=== PATIENT | male | born 1935 | race Caucasian/White ===

== ENCOUNTER 2016-09-25 11:49 | Inpatient (IN) | payer BC ==
[2016-09-25] MEDS ORDERED: ALBUTEROL SO4 0.083% IH SOL 2.5 MG/3 ML VIAL.NEB. NEB ONE (12:36)
[2016-09-25] MEDS ORDERED: IPRATROPIUM BR 0.02% 0.5 MG/2.5 ML VIAL.NEB. NEB ONE (12:36)
--- NOTE | 2016-09-25 12:36 | PDOC ---
History of Present Illness - General History Source: Patient, Family, Old Records Exam Limitations: No Limitations <NasimNicole - Last Filed: 09/25/16 14:37> - General History Source: Patient, Family Exam Limitations: No Limitations - History of Present Illness Initial Comments: 09/25/16 12:45 The patient is a 81 year old male, with a significant past medical history of HTN, HLD, GERD and asthma (uses inhaler as needed), who presents to the emergency department with cough for week and recent shortness of breath with wheezing. The notes that the patient's cough is productive of a white phlegm. The patient was admitted to the hospital 2 months ago with water in his lungs, stayed in the hospital for a week and was transferred to [facility] for a cardiac catheterization, which did not require stenting. The patient denies chest pain, headache and dizziness. Denies fever, chills, nausea, vomit, diarrhea and constipation. Denies dysuria, frequency, urgency and hematuria. Allergies: Amoxicillin. Doxycycline. Levofloxacin. Metronidazole. Past Surgical History: Laminectomy. Total hip replacement. Social History: Former smoker. He denies ETOH and recreational drug use. Primary Care Physician: Dr. David Kim [phone] Theater Company Producer: Dr. David Samano <Tunde Joseph - Last Filed: 09/25/16 14:41> - General Chief Complaint: Shortness of Breath Stated Complaint: SOB Time Seen by Provider: 09/25/16 12:19 Past History - Past Medical History GI Disorders: Yes (gerd) HTN: Yes Hypercholesterolemia: Yes - Surgical History Orthopedic Surgery: Yes (laminectomy; total hip replacement) - Immunization History Immunization Up to Date: Yes - Psycho/Social/Smoking Cessation Hx Anxiety: No Suicidal Ideation: No Smoking Status: Yes Smoking History: Never smoked Have you smoked in the past 12 months: No Number of Cigarettes Smoked Daily: 0 If you are a former smoker, when did you quit?: 50 years ago Hx Alcohol Use: No Drug/Substance Use Hx: No Substance Use Type: None Hx Substance Use Treatment: No <Nicole Rouse - Last Filed: 09/25/16 14:37> <Tunde Joseph - Last Filed: 09/25/16 14:41> - Past Medical History Allergies/Adverse Reactions: Allergies Allergy/AdvReac Type Severity Reaction Status Date / Time amoxicillin Allergy Verified 09/25/16 12:01 doxycycline Allergy Verified 09/25/16 12:01 levofloxacin Allergy Verified 09/25/16 12:01 metronidazole Allergy Verified 09/25/16 12:01 Home Medications: Ambulatory Orders Aspirin [ASA -] 81 mg PO DAILY 09/25/16 Atorvastatin Ca [Lipitor] 40 mg PO HS 09/25/16 Budesonide/Formeterol Fumarate [SYMBICORT 160/4.5mcg -] 1 inh IH PRN PRN Carbidopa/Levodopa 25/100 [Sinemet 25/100 -] 1 each PO TID 09/25/16 Cholecalciferol (Vitamin D3) [Vitamin D3] 400 unit PO DAILY 09/25/16 Diltiazem [Cardizem -] 120 mg PO BID 09/25/16 Furosemide [Lasix] 40 mg PO DAILY 09/25/16 Gabapentin 300 mg PO HS 09/25/16 Hydralazine HCl [Apresoline -] 25 mg PO TID 09/25/16 Losartan Potassium 100 mg PO DAILY 09/25/16 Metoprolol Tartrate 25 mg PO DAILY 09/25/16 Pantoprazole Sodium [Protonix] 40 mg PO DAILY 09/25/16 Potassium Chloride 10 meq PO DAILY 09/25/16 Thiamine HCl [Vitamin B1] 100 mg PO DAILY 09/25/16 Review of Systems - Review of Systems Able to Perform ROS?: Yes Comments:: 09/25/16 12:46 GENERAL/CONSTITUTIONAL: No fever or chills. No weakness. HEAD, EYES, EARS, NOSE AND THROAT: No change in vision. No ear pain or discharge. No sore throat. CARDIOVASCULAR: +Shortness of breath. No chest pain RESPIRATORY: +Cough and wheezing. No hemoptysis. GASTROINTESTINAL: No nausea, vomiting, diarrhea or constipation. GENITOURINARY: No dysuria, frequency, or change in urination. MUSCULOSKELETAL: No joint or muscle swelling or pain. No neck or back pain. SKIN: No rash NEUROLOGIC: No headache, vertigo, loss of consciousness, or change in strength/ sensation. ENDOCRINE: No increased thirst. No abnormal weight change HEMATOLOGIC/LYMPHATIC: No anemia, easy bleeding, or history of blood clots. ALLERGIC/IMMUNOLOGIC: No hives or skin allergy. <KaiserharshalTunde Kapoor - Last Filed: 09/25/16 14:41> *Physical Exam - Vital Signs Last Vital Signs Temp Pulse Resp BP Pulse Ox 98.3 F 95 H 20 149/79 96 09/25/16 11:58 09/25/16 11:58 09/25/16 11:58 09/25/16 11:58 09/25/16 11:58 <Nicole Rouse - Last Filed: 09/25/16 14:37> - Vital Signs Last Vital Signs Temp Pulse Resp BP Pulse Ox 98.3 F 95 H 20 149/79 96 09/25/16 11:58 09/25/16 11:58 09/25/16 11:58 09/25/16 11:58 09/25/16 11:58 - Physical Exam Comments: 09/25/16 12:46 GENERAL: Awake, alert, and fully oriented, in no acute distress HEAD: No signs of trauma, normocephalic, atraumatic EYES: PERRLA, EOMI, sclera anicteric, conjunctiva clear ENT: Auricles normal inspection, hearing grossly normal, nares patent, oropharynx clear without exudates. Moist mucosa NECK: Normal ROM, supple, no lymphadenopathy, JVD, or masses LUNGS: +Fair air entry with crackles at the bilateral bases and scant expiratory wheezing at upper lung field. No strider. HEART: Regular rate and rhythm, normal S1 and S2, no murmurs, rubs or gallops, peripheral pulses normal and equal bilaterally. ABDOMEN: Distended but soft, nontender, normoactive bowel sounds. No guarding, no rebound. No masses EXTREMITIES: 2+ bipedal edema. Normal inspection, Normal range of motion. No clubbing or cyanosis. NEUROLOGICAL: Cranial nerves II through XII grossly intact. Normal speech, normal gait, no focal sensorimotor deficits SKIN: Warm, Dry, normal turgor, no rashes or lesions noted. <KaiserharshalTunde - Last Filed: 09/25/16 14:41> ED Treatment Course - LABORATORY CBC & Chemistry Diagram: 09/25/16 12:36 09/25/16 12:36 <Nicole Rouse - Last Filed: 09/25/16 14:37> - LABORATORY CBC & Chemistry Diagram: 09/25/16 12:36 09/25/16 12:36 - RADIOLOGY Radiograph Interpretation: 09/25/16 13:32 Chest X-Ray Reviewed by: Dr. Martínez Nichole Impression: Apical lordotic projection. No acute pathology. No left upper lobe calcification. Vertical calcification left neck. <Tunde Joseph - Last Filed: 09/25/16 14:41> Medical Decision Making - Medical Decision Making 09/25/16 12:40 81-year-old male with history of osteoarthritis, hypertension, CHF, COPD/asthma , Parkinson's disease, chronic lower back pain status post laminectomy who presents the emergency department with one week history of shortness of breath and cough, chills at home. Differential diagnosis includes but is not limited to : Pneumonia, influenza, bronchitis, asthma/COPD exacerbation, CHF exacerbation, anemia, electrolyte abnormality, sepsis, toxic/metabolic derangement. Plan: 1 EKG 2. Chest x-ray 3. Labs 4. DuoNeb treatments 5. Influenza PCR 6. Observe and reevaluate 09/25/16 14:07 Addendum: Chest x-ray is negative however the patient has fever to 101.4 rectally and an elevated white blood cell count and is also influenza a positive. The patient has been jacob cultured blood and urine and has been given Tamiflu 75 mg by mouth 1. Given his age and comorbidities illnesses Will admit to the hospital. <Nicole Rouse - Last Filed: 09/25/16 14:37> - Medical Decision Making 09/25/16 14:41 Dr. David Alicia was called regarding the patient at 2:07pm. Dr. García was consulted regarding the patient at 2:35pm [phone] <Tunde Joseph - Last Filed: 09/25/16 14:41> *DC/Admit/Observation/Transfer - Discharge Dispostion Admit: Yes - Attestations Physician Attestion: 09/25/16 12:42 I, Dr. Nicole Rouse, attest that the scribes documentation that appears above has been prepared under my direction and personally reviewed by me in its entirety. I confirmed that the note above accurately reflects all work, treatment, procedures, and medical decision-making performed by me. <Nicole Rouse - Last Filed: 09/25/16 14:37> - Attestations Scribe Attestion: 09/25/16 12:46 Documentation prepared by Tunde Joseph, acting as medical research assistant for Nicole Rouse MD. <Tunde Joseph - Last Filed: 09/25/16 14:41> Diagnosis at time of Disposition: Shortness of breath, Influenza A - Discharge Dispostion Condition at time of disposition: Stable - Referrals Referrals: David Alicia MD [Primary Care Provider] -
[2016-09-25] MEDS ORDERED: ALBUTEROL SO4 2.5/IPRATROPIUM 0.5 INH SOL 3 ML VIAL.NEB. NEB ONE (12:56)
[2016-09-25] MEDS ORDERED: ACETAMINOPHEN 500 MG TABLET (FP) PO ONE (12:58)
[2016-09-25 13:03] LABS: BASOPHIL 0.4 % (0-2.0); MCH 30.2 pg (25.7-33.7); MCHC 33.9 g/dl (32.0-35.9); MEAN CELL VOLUME 89.1 fl (80-96); MEAN PLT VOLUME 7.3 fl (7.5-11.1); NEUTROPHILS 83.8 % (42.8-82.8); PLATELET COUNT 135 K/MM3 (134-434); RDW 13.7 % (11.9-15.9); WHITE BLOOD COUNT 11.5 K/mm3 (4.0-10.0)
[2016-09-25] MEDS ORDERED: ACETAMINOPHEN 325 MG TABLET (FP) ONE (13:31)
[2016-09-25 13:34] LABS: ANION GAP 10 (8-16); BILIRUBIN,TOTAL 0.8 mg/dL (0.2-1.0); CALCIUM 8.3 mg/dL (8.5-10.1); CO2 28 mmol/L (21-32); CREATININE 1.1 mg/dL (0.7-1.3); GLUCOSE,RANDOM 132 mg/dL (74-106); SGOT/AST 23 U/L (15-37); SGPT/ALT 14 U/L (12-78); TOT PROT 5.7 g/dl (6.4-8.2)
[2016-09-25] MEDS ORDERED: CEFTRIAXONE 1 GM in DEXTROSE 5%-WATER - 50 ML IVPB ONE (13:35)
[2016-09-25] MEDS ORDERED: AZITHROMYCIN IVPB 500 MG in DEXTROSE 5%-WATER - 250 ML IVPB ONE (13:35)
[2016-09-25 13:37] LABS: ALK PHOS 81 U/L (45-117); TROPONIN I 0.06 ng/ml (0.00-0.05)
[2016-09-25] MEDS ORDERED: CEFTRIAXONE 50 ML ONE ×2 (13:44)
[2016-09-25] MEDS ORDERED: AZITHROMYCIN IVPB 250 ML IVPB ONE (13:44)
[2016-09-25 13:51] LABS: URINE APPEARANCE CLEAR; URINE BILIRUBIN NEGATIVE (NEGATIVE); URINE BLOOD NEGATIVE (NEGATIVE); URINE COLOR YELLOW; URINE GLUCOSE (UA) NEGATIVE (NEGATIVE); URINE KETONE TRACE (NEGATIVE); URINE LEUK ESTERASE NEGATIVE (NEGATIVE); URINE NITRITE NEGATIVE (NEGATIVE); URINE PROTEIN NEGATIVE (NEGATIVE); URINE UROBILINOGEN NEGATIVE E.U./dl (0.2-1.0)
[2016-09-25] MEDS ORDERED: OSELTAMIVIR PHOSPHATE 75 MG CAPSULE PO ONE (13:56)
[2016-09-25] MEDS ORDERED: OSELTAMIVIR PHOSPHATE 75 MG CAPSULE ONE (14:02)
--- NOTE | 2016-09-25 16:07 | PN ---
Progress Note (short form) - Note Progress Note: ID consult dictated history from son at bedside 81 year old man started coughing Tuesday- no nasal spray that he stopped, cough persisted, this am fever and chills, they called PMD who advised tylenol and ED evaluation dry cough no nausea or vomiting febrile in ED with positive influenza screen for influenza A received rocephin/zithromax/tamiflu cxray is clear imp/reccd influenza A droplet isolation tamiflu unable to reach Dr Alicia did not get flu shot- advised fast track eval for influenza and prophylaxis with tamiflu if screen is negative Problem List - Problems (1) Influenza A Code(s): J10.1 - FLU DUE TO OTH IDENT INFLUENZA VIRUS W OTH RESP MANIFEST
[2016-09-25 17:40] VITALS: BMI 29.6
[2016-09-25] MEDS: ALBUTEROL SO4 0.083% IH SOL 2.5 MG/3 ML VIAL.NEB. NEB SCH (20:40)
[2016-09-25] MEDS ORDERED: methylPREDNISolone NA SUCC 40 MG/1 ML VIAL IVPB ONE (21:44)
[2016-09-25] MEDS ORDERED: ACETAMINOPHEN 325 MG TABLET (FP) PO PRN (22:01)
[2016-09-25] MEDS: hydrALAZINE HCL 25 MG TABLET (FP) PO SCH (22:43)
[2016-09-25] MEDS: predniSONE 5 MG TABLET (UD) PO SCH (22:43)
[2016-09-25] MEDS: GABAPENTIN 300 MG CAPSULE (FP) PO SCH (22:44)
[2016-09-25] MEDS: ATORVASTATIN CA 40 MG TABLET (FP) PO SCH (22:44)
[2016-09-25] MEDS: OSELTAMIVIR PHOSPHATE 75 MG CAPSULE PO SCH (22:45)
[2016-09-25] MEDS: CARBIDOPA/LEVODOPA 25/100 TABLET (FP) PO SCH (22:45)
[2016-09-25] MEDS: METOPROLOL SUCCINATE 25 MG TAB.SR.24H (FP) PO SCH (22:46)
[2016-09-25] MEDS: BUDESONIDE/FORMETEROL FUMARATE 80/4.5 mcg INHALER IH SCH (22:46)
--- NOTE | 2016-09-25 23:51 | CONS ---
DATE OF CONSULTATION: 09/25/2016 REQUESTED BY: David Alicia MD HISTORY OF PRESENT ILLNESS: This is a 81-year-old man with a past medical history of hypertension, hyperlipidemia, GERD and asthma. He was seen by ENT earlier this week, on Tuesday or Tuesday. He was prescribed a nasal spray for dryness in his nose. Once he started using it, he started coughing. The family noticed he had a dry cough. This morning, he had fever and was very weak. They called the PMD, Dr. Alicia , who recommended that they give him some Tylenol and bring him to the ER, which they did. On arrival to the ER, he was afebrile. He subsequently had fever in the ER and he had influenza screen done that was positive for influenza A. He received Rocephin, Zithromax and Tamiflu and I am asked to see him. He is resting comfortably. There is no history of any nausea, vomiting, diarrhea, or dysuria. PAST MEDICAL HISTORY: Obtained from his son. Notable for coronary artery disease, hypertension, hyperlipidemia, asthma, GERD, hiatal hernia, depression, chronic low back pain, osteoarthritis, polymyalgia rheumatica. PAST SURGICAL HISTORY: He has a history of joint replacement, laminectomy. He has a history of a recent cardiac catheterization that did not require any stent placement. FAMILY HISTORY: Noncontributory. SOCIAL HISTORY: He lives at home with his . He is a former smoker. There is no history of any substance use. ALLERGIES: AMOXICILLIN, DOXYCYCLINE, LEVOFLOXACIN, AND METRONIDAZOLE MEDICATIONS AT HOME: Include aspirin, Lipitor, Symbicort, Sinemet, vitamin D, Cardizem, Lasix, gabapentin, and presently, Losartan, metoprolol, Protonix, potassium and thiamin. REVIEW OF SYSTEMS: Notable for dry cough and fever. PHYSICAL EXAMINATION: General: He is awake and alert resting comfortably. Vital Signs: Temperature 101.7, pulse 90, blood pressure 149/79, respiratory rate 20, saturating 97% on 2 L. HEENT: Normocephalic. His eyes are anicteric. Neck: Supple. Lungs: Diminished breath sounds at the based. Heart: Regular rate and rhythm. Abdomen: Soft, nontender. Extremities: Without edema. LABORATORY DATA: White count 11.5, hemoglobin 12.4, platelets of 135. BUN and creatinine are 16 and 1.1. His lactic acid is 2. Liver function tests are normal. Urinalysis is negative. Blood and urine cultures were sent. Influenza screen is positive for influenza A and chest x-ray reveals no acute pathology. IN SUMMARY: This is a 81-year-old man with a history of hypertension, hyperlipidemia, laminectomy and total hip replacement, multiple drug allergies who has acute influenza A. I would suggest that we place him in droplet isolation and treat him with Tamiflu. He received Rocephin and Zithromax and multiple blood cultures have been ordered. Further recommendations to follow based on his clinical course. I spoke to the , who lives at home with him. She has not had an influenza vaccine this year. I recommended to the son that we have her evaluated in Fast Track and for her to be offered Tamiflu prophylaxis. Further recommendations to follow based on the clinical course. JENNA BOWLES M.D. [id number] MTDD
[2016-09-26] MEDS: ALBUTEROL SO4 0.083% IH SOL 2.5 MG/3 ML VIAL.NEB. NEB SCH ×6 (00:20→23:32)
[2016-09-26] MEDS: CARBIDOPA/LEVODOPA 25/100 TABLET (FP) PO SCH ×3 (06:23→21:53)
[2016-09-26] MEDS: FUROSEMIDE 40 MG TABLET (FP) PO SCH ×2 (06:25→14:26)
[2016-09-26] MEDS: hydrALAZINE HCL 25 MG TABLET (FP) PO SCH ×3 (06:25→21:53)
[2016-09-26] MEDS ORDERED: PT OWN MED DRAWER 7, Y5N ONE ×3 (09:21→21:47)
--- NOTE | 2016-09-26 09:35 | EKG ---
Test Reason : Blood Pressure : / mmHG Vent. Rate : 090 BPM Atrial Rate : 090 BPM P-R Int : 224 ms QRS Dur : 110 ms QT Int : 392 ms P-R-T Axes : 018 -48 078 degrees QTc Int : 479 ms POOR DATA QUALITY, INTERPRETATION MAY BE ADVERSELY AFFECTED SINUS RHYTHM WITH 1ST DEGREE A-V BLOCK INCOMPLETE RIGHT BUNDLE BRANCH BLOCK LEFT ANTERIOR FASCICULAR BLOCK LEFT VENTRICULAR HYPERTROPHY WITH REPOLARIZATION ABNORMALITY CANNOT RULE OUT SEPTAL INFARCT , AGE UNDETERMINED ABNORMAL ECG Confirmed by DRE ROBERTS MD ([id number]) on 09/26/2016 9:34:56 AM Referred By: Confirmed By:DRE ROBERTS MD
[2016-09-26] MEDS: ISOSORBIDE MONONITRATE 30 MG TAB.SR.24H (FP) PO SCH (09:46)
[2016-09-26] MEDS: predniSONE 5 MG TABLET (UD) PO SCH (09:46)
[2016-09-26] MEDS: POTASSIUM CHLORIDE TABS 10 MEQ TABLET.ER (FP) PO SCH (09:46)
[2016-09-26] MEDS: GABAPENTIN 300 MG CAPSULE (FP) PO SCH ×2 (09:47→21:52)
[2016-09-26] MEDS: OSELTAMIVIR PHOSPHATE 75 MG CAPSULE PO SCH ×2 (09:47→21:54)
[2016-09-26] MEDS: METOPROLOL SUCCINATE 25 MG TAB.SR.24H (FP) PO SCH (09:47)
[2016-09-26] MEDS: AZITHROMYCIN 250 MG TABLET (FP) PO SCH (09:47)
[2016-09-26] MEDS: BUDESONIDE/FORMETEROL FUMARATE 80/4.5 mcg INHALER IH SCH ×2 (09:50→21:54)
--- NOTE | 2016-09-26 14:34 | HP ---
Admitting History and Physical - Primary Care Physician PCP: David Alicia - Admission Chief Complaint: Fever. Severe SOB with wheezing History of Present Illness: Known case of CHF, hypertension and Polymialgia Rheumatica who developed cough day before admission and then devel;oped Fever, shaking chill ,wheezing and SOB. Came to ER and found to have Influenza and was started on Tamiflu and also give IV steroids and admitted . History Source: Patient, Family Member Limitations to Obtaining History: No Limitations - Past Medical History [employer]IN[employer] HER[employer]IST: Yes: Peripheral Neuropathy, Parkinson's Cardiovascular: Yes: CAD, CHF, HTN, Hyperlipdemia Pulmonary: Yes: Asthma Gastrointestinal: Yes: GERD, Hiatal Hernia Psych: Yes: Anxiety Musculoskeletal: Yes: Chronic low back pain, Osteoarthritis Rheumatology: Yes: Other (polymyalgia rheumatica) Dermatology: Yes: Other (port wine stain LLE). No: Basal Cell, Cellulitis, Eczema, Melanoma, Psoriasis, Squamous Cell - Past Surgical History Past Surgical History: Yes: Colonoscopy, Joint Replacement, Laminectomy, Upper Endoscopy - Smoking History Smoking history: Former smoker Have you smoked in the past 12 months: No Aproximately how many cigarettes per day: 0 If you are a former smoker, when did you quit?: 50 years ago - Alcohol/Substance Use Hx Alcohol Use: No History of Substance Use: reports: None - Social History ADL: Independent History of Recent Travel: No Home Medications - Allergies Allergies/Adverse Reactions: Allergies Allergy/AdvReac Type Severity Reaction Status Date / Time amoxicillin Allergy Verified 09/25/16 12:01 doxycycline Allergy Verified 09/25/16 12:01 levofloxacin Allergy Verified 09/25/16 12:01 metronidazole Allergy Verified 09/25/16 12:01 - Home Medications Home Medications: Ambulatory Orders Aspirin [ASA -] 81 mg PO DAILY 09/25/16 Atorvastatin Ca [Lipitor] 40 mg PO HS 09/25/16 Budesonide/Formeterol Fumarate [SYMBICORT 160/4.5mcg -] 1 inh IH PRN PRN Carbidopa/Levodopa 25/100 [Sinemet 25/100 -] 1 each PO TID 09/25/16 Cholecalciferol (Vitamin D3) [Vitamin D3] 400 unit PO DAILY 09/25/16 Diltiazem Cd [Cardizem Cd -] 120 mg PO BID 09/25/16 Furosemide [Lasix] 40 mg PO BIDLASIX 09/25/16 Gabapentin 300 mg PO HS 09/25/16 Hydralazine HCl [Apresoline -] 25 mg PO TID 09/25/16 Isosorbide Mononitrate [Imdur -] 30 mg PO DAILY 09/25/16 Metoprolol Tartrate 12.5 mg PO HS 09/25/16 Pantoprazole Sodium [Protonix] 40 mg PO DAILY 09/25/16 Potassium Chloride 10 meq PO DAILY 09/25/16 Prednisone [Deltasone -] 2.5 mg PO HS 09/25/16 Thiamine HCl [Vitamin B1] 100 mg PO DAILY 09/25/16 Review of Systems - Review of Systems Constitutional: reports: Chills, Lethargy Eyes: reports: No Symptoms HENT: reports: No Symptoms Neck: reports: No Symptoms Cardiovascular: reports: No Symptoms Respiratory: reports: Cough, Wheezing Gastrointestinal: reports: No Symptoms Genitourinary: reports: No Symptoms Musculoskeletal: reports: Back Pain, Joint Pain Integumentary: reports: No Symptoms Neurological: reports: Parasthesia Hematology/Lymphatic: reports: No Symptoms Psychiatric: reports: Anxiety Physical Examination Vital Signs: Vital Signs Temperature 98.6 F 09/26/16 10:00 Pulse Rate 72 09/26/16 10:00 Respiratory Rate 20 09/26/16 10:00 Blood Pressure 140/70 09/26/16 10:00 O2 Sat by Pulse Oximetry (%) 98 09/26/16 09:00 Constitutional: Yes: Well Nourished, No Distress, Calm Eyes: Yes: WNL HENT: Yes: WNL Neck: Yes: WNL, Supple Cardiovascular: Yes: Regular Rate and Rhythm, S1, S2 Respiratory: Yes: Cough, Wheezes Gastrointestinal: Yes: Normal Bowel Sounds, Soft Renal/: Yes: WNL Breast(s): Yes: WNL Musculoskeletal: Yes: Back Pain, Joint Stiffness, Muscle Weakness Extremities: Yes: WNL Edema: No Peripheral Pulses WNL: Yes Integumentary: Yes: WNL Neurological: Yes: Alert, Oriented, Cran Nerves II-XII Intact, Tremors ...Motor Strength: WNL Psychiatric: Yes: Alert, Oriented Problem List - Problems (1) Influenza A Assessment/Plan: After being treated with Tamiflu felt better Code(s): J10.1 - FLU DUE TO OTH IDENT INFLUENZA VIRUS W OTH RESP MANIFEST (2) Acute bronchitis Assessment/Plan: Was given a short course of IV Solu medrol with improvement of SOB. Today wheezin is much less Code(s): J20.9 - ACUTE BRONCHITIS, UNSPECIFIED Assessment/Plan Continue Tamiflu , Will give another dose of IV Steroids. Continue PO zithromax
[2016-09-26] MEDS ORDERED: methylPREDNISolone NA SUCC 40 MG/1 ML VIAL IVPB ONE (14:46)
[2016-09-26] MEDS: ATORVASTATIN CA 40 MG TABLET (FP) PO SCH (21:52)
[2016-09-27] MEDS ORDERED: PT OWN MED DRAWER 7, Y5N ONE ×2 (06:06→14:33)
[2016-09-27] MEDS: FUROSEMIDE 40 MG TABLET (FP) PO SCH ×2 (06:18→14:39)
[2016-09-27] MEDS: hydrALAZINE HCL 25 MG TABLET (FP) PO SCH ×2 (06:18→14:37)
[2016-09-27] MEDS: CARBIDOPA/LEVODOPA 25/100 TABLET (FP) PO SCH ×2 (06:19→14:37)
[2016-09-27] MEDS: ALBUTEROL SO4 0.083% IH SOL 2.5 MG/3 ML VIAL.NEB. NEB SCH ×3 (06:40→18:20)
[2016-09-27] MEDS: AZITHROMYCIN 250 MG TABLET (FP) PO SCH (11:17)
[2016-09-27] MEDS: POTASSIUM CHLORIDE TABS 10 MEQ TABLET.ER (FP) PO SCH (11:17)
[2016-09-27] MEDS: predniSONE 5 MG TABLET (UD) PO SCH (11:18)
[2016-09-27] MEDS: ISOSORBIDE MONONITRATE 30 MG TAB.SR.24H (FP) PO SCH (11:18)
[2016-09-27] MEDS: GABAPENTIN 300 MG CAPSULE (FP) PO SCH (11:18)
[2016-09-27] MEDS: METOPROLOL SUCCINATE 25 MG TAB.SR.24H (FP) PO SCH (11:18)
[2016-09-27] MEDS: BUDESONIDE/FORMETEROL FUMARATE 80/4.5 mcg INHALER IH SCH (11:19)
[2016-09-27] MEDS: OSELTAMIVIR PHOSPHATE 75 MG CAPSULE PO SCH (11:19)
--- NOTE | 2016-09-27 12:48 | CON.CARD ---
Consult Consult Specialty:: Cardiology - History of Present Illness History of Present Illness: The patient is a 81 year old male, with a significant past medical history of HTN, HLD, GERD and asthma (uses inhaler as needed), who presents to the emergency department with cough for week and recent shortness of breath with wheezing. The notes that the patient's cough is productive of a white phlegm. The patient was admitted to the hospital 2 months ago with water in his lungs, stayed in the hospital for a week and was transferred to [facility] for a cardiac catheterization, which did not require stenting. The patient denies chest pain, headache and dizziness. Denies fever, chills, nausea, vomit, diarrhea and constipation. Denies dysuria, frequency, urgency and hematuria. Allergies: Amoxicillin. Doxycycline. Levofloxacin. Metronidazole. Past Surgical History: Laminectomy. Total hip replacement. Social History: Former smoker. He denies ETOH and recreational drug use. Primary Care Physician: Dr. David Kim [phone] Medical Administrative: Dr. David Samano [facility] Coronary angiogram 08/11/2016 at [facility] by Dr. Purcell: proximal LAD <30% , mid 50-60%, distal <30% stenoses; distal LCx <30% stenosis; normal LVEF) lower back 2009 Rt hip implant 1999 depression HHD HTN (ECHO 08/11/[address] [facility]'s: normal LVEF; "LVH" with abnormal diastolic compliance. hyperlipidemia pLAD myocardial bridge 2009 [facility] Cardiac Cath. 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 No: Basal Cell, Cellulitis, Eczema, Melanoma, Psoriasis, Squamous Cell - Past Surgical History Past Surgical History: Yes: Colonoscopy, Joint Replacement, Laminectomy, Upper Endoscopy - Alcohol/Substance Use Hx Alcohol Use: No History of Substance Use: reports: None - Smoking History Smoking history: Former smoker Have you smoked in the past 12 months: No Aproximately how many cigarettes per day: 0 If you are a former smoker, when did you quit?: 50 years ago - Social History ADL: Independent History of Recent Travel: No Home Medications - Allergies Allergies/Adverse Reactions: Allergies Allergy/AdvReac Type Severity Reaction Status Date / Time amoxicillin Allergy Verified 09/25/16 12:01 doxycycline Allergy Verified 09/25/16 12:01 levofloxacin Allergy Verified 09/25/16 12:01 metronidazole Allergy Verified 09/25/16 12:01 - Home Medications Home Medications: Ambulatory Orders Aspirin [ASA -] 81 mg PO DAILY 09/25/16 Atorvastatin Ca [Lipitor] 40 mg PO HS 09/25/16 Budesonide/Formeterol Fumarate [SYMBICORT 160/4.5mcg -] 1 inh IH PRN PRN Carbidopa/Levodopa 25/100 [Sinemet 25/100 -] 1 each PO TID 09/25/16 Cholecalciferol (Vitamin D3) [Vitamin D3] 400 unit PO DAILY 09/25/16 Diltiazem Cd [Cardizem Cd -] 120 mg PO BID 09/25/16 Furosemide [Lasix] 40 mg PO BIDLASIX 09/25/16 Gabapentin 300 mg PO HS 09/25/16 Hydralazine HCl [Apresoline -] 25 mg PO TID 09/25/16 Isosorbide Mononitrate [Imdur -] 30 mg PO DAILY 09/25/16 Metoprolol Tartrate 12.5 mg PO HS 09/25/16 Pantoprazole Sodium [Protonix] 40 mg PO DAILY 09/25/16 Potassium Chloride 10 meq PO DAILY 09/25/16 Prednisone [Deltasone -] 2.5 mg PO HS 09/25/16 Thiamine HCl [Vitamin B1] 100 mg PO DAILY 09/25/16 Review of Systems - Review of Systems Constitutional: reports: No Symptoms Eyes: reports: No Symptoms HENT: reports: No Symptoms Neck: reports: No Symptoms Cardiovascular: reports: No Symptoms, Shortness of Breath Gastrointestinal: reports: No Symptoms Genitourinary: reports: No Symptoms Breasts: reports: No Symptoms Reported Musculoskeletal: reports: No Symptoms Integumentary: reports: No Symptoms Neurological: reports: No Symptoms Endocrine: reports: No Symptoms Hematology/Lymphatic: reports: No Symptoms Psychiatric: reports: No Symptoms Vital Signs: Vital Signs Temperature 98.3 F 09/27/16 06:32 Pulse Rate 66 09/27/16 06:32 Respiratory Rate 20 09/27/16 06:32 Blood Pressure 120/50 09/27/16 06:32 O2 Sat by Pulse Oximetry (%) 98 09/26/16 21:00 Constitutional: Yes: Well Nourished, No Distress, Calm Eyes: Yes: WNL, Conjunctiva Clear, EOM Intact HENT: Yes: WNL, Atraumatic, Normocephalic Neck: Yes: WNL, Supple, Trachea Midline Respiratory: Yes: WNL, Regular, CTA Bilaterally Gastrointestinal: Yes: WNL, Normal Bowel Sounds Renal/: Yes: WNL Cardiovascular: Yes: WNL, Regular Rate and Rhythm Musculoskeletal: Yes: WNL Extremities: Yes: WNL Integumentary: Yes: WNL Neurological: Yes: WNL, Alert, Oriented ...Motor Strength: WNL Psychiatric: Yes: WNL, Alert, Oriented Imaging - Results Chest X-ray: Image Reviewed (no i/e) EKG: Image Reviewed (sr lafb) Problem List - Problems (1) Acute bronchitis Code(s): J20.9 - ACUTE BRONCHITIS, UNSPECIFIED (2) Influenza A Code(s): J10.1 - FLU DUE TO OTH IDENT INFLUENZA VIRUS W OTH RESP MANIFEST (3) Shortness of breath Code(s): R06.02 - SHORTNESS OF BREATH (4) Acute bronchiolitis due to other infectious organisms Code(s): J21.8 - ACUTE BRONCHIOLITIS DUE TO OTHER SPECIFIED ORGANISMS (5) Acute on chronic diastolic (congestive) heart failure Code(s): I50.33 - ACUTE ON CHRONIC DIASTOLIC (CONGESTIVE) HEART FAILURE (6) Arthritis Code(s): M19.90 - UNSPECIFIED OSTEOARTHRITIS, UNSPECIFIED SITE (7) Arthritis of upper arm Code(s): M19.90 - UNSPECIFIED OSTEOARTHRITIS, UNSPECIFIED SITE (8) CHF (congestive heart failure) Code(s): I50.9 - HEART FAILURE, UNSPECIFIED Qualifiers: Congestive heart failure type: unspecified congestive heart failure type Congestive heart failure chronicity: unspecified congestive heart failure chronicity Qualified Code(s): I50.9 - Heart failure, unspecified (9) Cellulitis Code(s): L03.90 - CELLULITIS, UNSPECIFIED Qualifiers: Site of cellulitis: extremity Site of cellulitis of extremity: upper extremity Laterality: right Qualified Code(s): L03.113 - Cellulitis of right upper limb (10) Chronic pain Code(s): G89.29 - OTHER CHRONIC PAIN Qualifiers: Chronic pain type: chronic pain syndrome Qualified Code(s): G89.4 - Chronic pain syndrome (11) Cough Code(s): R05 - COUGH (12) Depression Code(s): F32.9 - MAJOR DEPRESSIVE DISORDER, SINGLE EPISODE, UNSPECIFIED (13) Drug allergy, antibiotic Code(s): Z88.1 - ALLERGY STATUS TO OTHER ANTIBIOTIC AGENTS STATUS (14) GERD without esophagitis Code(s): K21.9 - GASTRO-ESOPHAGEAL REFLUX DISEASE WITHOUT ESOPHAGITIS (15) Hearing loss Code(s): H91.90 - UNSPECIFIED HEARING LOSS, UNSPECIFIED EAR Qualifiers: Laterality: bilateral Qualified Code(s): H91.93 - Unspecified hearing loss, bilateral (16) History of total hip replacement Code(s): Z96.649 - PRESENCE OF UNSPECIFIED ARTIFICIAL HIP JOINT (17) Hyperkalemia Code(s): E87.5 - HYPERKALEMIA (18) Hypernatremia Code(s): E87.0 - HYPEROSMOLALITY AND HYPERNATREMIA (19) Hypertension Code(s): I10 - ESSENTIAL (PRIMARY) HYPERTENSION Qualifiers: Hypertension type: essential hypertension Qualified Code(s): I10 - Essential (primary) hypertension (20) Hypokalemia Code(s): E87.6 - HYPOKALEMIA (21) Hyponatremia Code(s): E87.1 - HYPO-OSMOLALITY AND HYPONATREMIA (22) Lower extremity edema Code(s): R60.0 - LOCALIZED EDEMA Qualifiers: Laterality: bilateral Qualified Code(s): R60.0 - Localized edema (23) Lumbar radicular pain Code(s): M54.16 - RADICULOPATHY, LUMBAR REGION (24) Osteoarthritis of lumbar spine Code(s): M47.816 - SPONDYLOSIS W/O MYELOPATHY OR RADICULOPATHY, LUMBAR REGION (25) Pneumonia Code(s): J18.9 - PNEUMONIA, UNSPECIFIED ORGANISM (26) Polymyalgia rheumatica Code(s): M35.3 - POLYMYALGIA RHEUMATICA (28) Wheezing Code(s): R06.2 - WHEEZING Assessment/Plan influenza bronchitis ashd htn depression hld plan cardiac [place] stable cont present rx
--- NOTE | 2016-09-27 14:14 | PN ---
Progress Note (short form) - Note Progress Note: just had a neb treatment not wheezing now but apparently wheezing earlier alert nad Vital Signs Period Temp Pulse Resp BP Sys/Onofre Pulse Ox Last 24 Hr 98.2 F-98.6 F 66-79 18-20 120-145/50-70 98 cor-rrr lungs clear abd soft,nt ext no edema CBC, BMP 09/25/16 12:36 09/25/16 12:36 Microbiology 09/25/16 13:30 Blood - Peripheral Venous Blood Culture - Preliminary NO GROWTH OBTAINED AFTER 48 HOURS, INCUBATION TO CONTINUE FOR 3 DAYS. 09/25/16 13:30 Blood - Peripheral Venous Blood Culture - Preliminary NO GROWTH OBTAINED AFTER 48 HOURS, INCUBATION TO CONTINUE FOR 3 DAYS. 09/25/16 13:30 Urine - Urine Clean Catch Urine Culture - Final 09/25/16 13:16 Nasopharyngeal Swab Influenza Types A,B Antigen (IVAN) - Final 09/25/16 13:16 Nasopharyngeal Swab - Final a/p acute influenza A copd/bronchospasm complete 5 day course of tamiflu can d/c zithromax please call back if needed
[2016-09-27 15:28] VITALS: TEMP 97.9
[2016-09-27 19:14] VITALS: BP 136/69; PULSE 67
--- NOTE | 2016-09-27 19:47 | PN ---
Progress Note, Physician History of Present Illness: Feels much better. Had an episode of wheezing this AM but none now. - Current Medication List Current Medications: Active Medications Acetaminophen (Tylenol -) 650 mg PO Q4H PRN PRN Reason: FEVER OR PAIN Albuterol Sulfate (Ventolin 0.083% Nebulizer Soln -) 1 amp NEB QIDR [facility] Last Admin: 09/27/16 18:20 Dose: 1 amp Atorvastatin Calcium (Lipitor -) 40 mg PO HS [facility] Last Admin: 09/26/16 21:52 Dose: 40 mg Azithromycin (Zithromax -) 500 mg PO DAILY [facility] Last Admin: 09/27/16 11:17 Dose: 500 mg Budesonide/Formoterol Fumarate (Symbicort 80/4.5mcg -) 2 puff IH BID [facility] Last Admin: 09/27/16 11:19 Dose: 2 puff Carbidopa/Levodopa (Sinemet 25/100 -) 1 each PO TID [facility] Last Admin: 09/27/16 14:37 Dose: 1 each Diltiazem HCl (Cardizem Cd -) 120 mg PO BID [facility] Last Admin: 09/27/16 11:17 Dose: 120 mg Furosemide (Lasix -) 40 mg PO BID@0600,1400 [facility] Last Admin: 09/27/16 14:39 Dose: 40 mg Gabapentin (Neurontin -) 300 mg PO BID [facility] Last Admin: 09/27/16 11:18 Dose: 300 mg Hydralazine HCl (Apresoline -) 25 mg PO TID [facility] Last Admin: 09/27/16 14:37 Dose: 25 mg Isosorbide Mononitrate (Imdur -) 30 mg PO DAILY [facility] Last Admin: 09/27/16 11:18 Dose: 30 mg Metoprolol Succinate (Toprol Xl -) 12.5 mg PO DAILY [facility] Last Admin: 09/27/16 11:18 Dose: 12.5 mg Oseltamivir Phosphate (Tamiflu -) 75 mg PO BID [facility] Stop: 09/30/16 21:59 Last Admin: 09/27/16 11:19 Dose: 75 mg Pantoprazole Sodium (Protonix -) 40 mg PO DAILY [facility] Last Admin: 09/27/16 11:17 Dose: 40 mg Potassium Chloride (K-Dur -) 10 meq PO DAILY [facility] Last Admin: 09/27/16 11:17 Dose: 10 meq Prednisone (Deltasone -) 2.5 mg PO DAILY [facility] Last Admin: 09/27/16 11:18 Dose: 2.5 mg - Objective Vital Signs: Vital Signs Temperature 97.9 F 09/27/16 18:00 Pulse Rate 67 09/27/16 18:00 Respiratory Rate 18 09/27/16 18:00 Blood Pressure 136/69 09/27/16 18:00 O2 Sat by Pulse Oximetry (%) 98 09/27/16 09:00 Constitutional: Yes: Well Nourished, No Distress, Calm Eyes: Yes: WNL HENT: Yes: WNL Neck: Yes: WNL, Supple Cardiovascular: Yes: Regular Rate and Rhythm, S1, S2 Respiratory: Yes: Regular, CTA Bilaterally Gastrointestinal: Yes: Normal Bowel Sounds, Soft Genitourinary: Yes: WNL Breast(s): Yes: WNL Musculoskeletal: Yes: Back Pain Extremities: Yes: WNL Edema: No Peripheral Pulses WNL: Yes Neurological: Yes: Alert, Oriented ...Motor Strength: WNL Psychiatric: Yes: Alert, Oriented Problem List - Problems (1) Influenza A Assessment/Plan: Influenza being treated with Tamiflu and patient improved Code(s): J10.1 - FLU DUE TO OTH IDENT INFLUENZA VIRUS W OTH RESP MANIFEST (2) Acute bronchitis Assessment/Plan: asthmatic bronchitis also improved with two doses of solu-medrol Code(s): J20.9 - ACUTE BRONCHITIS, UNSPECIFIED Assessment/Plan Asymtomatic at present after 8hours from last episode of wheezing.Will discharge
--- NOTE | 2016-09-28 12:32 | PN ---
Progress Note, Physician History of Present Illness: The patient is a 81 year old male, with a significant past medical history of CAD (non-obstructive coronaries on angiogram done at [facility] 07/2016); HTN, HLD, GERD and asthma (uses inhaler as needed), who presents to the emergency department with cough for week and recent shortness of breath with wheezing. The notes that the patient's cough is productive of a white phlegm. The patient was admitted to the hospital 2 months ago with water in his lungs, stayed in the hospital for a week and was transferred to [facility] for a cardiac catheterization, which did not require stenting. The patient denies chest pain, headache and dizziness. Denies fever, chills, nausea, vomit, diarrhea and constipation. Denies dysuria, frequency, urgency and hematuria. Allergies: Amoxicillin. Doxycycline. Levofloxacin. Metronidazole. Past Surgical History: Laminectomy. Total hip replacement. Social History: Former smoker. He denies ETOH and recreational drug use. Primary Care Physician: Dr. David Kim [phone] Visual Designer: Dr. David Samano - Objective Vital Signs: Vital Signs Temperature 97.9 F 09/27/16 18:00 Pulse Rate 67 09/27/16 18:00 Respiratory Rate 18 09/27/16 18:00 Blood Pressure 136/69 09/27/16 18:00 O2 Sat by Pulse Oximetry (%) 98 09/27/16 09:00
--- NOTE | 2016-09-28 15:08 | DS ---
Physical Examination Vital Signs: Vital Signs Temperature 97.9 F 09/27/16 18:00 Pulse Rate 67 09/27/16 18:00 Respiratory Rate 18 09/27/16 18:00 Blood Pressure 136/69 09/27/16 18:00 O2 Sat by Pulse Oximetry (%) 98 09/27/16 09:00 Constitutional: Yes: Well Nourished, No Distress, Calm Eyes: Yes: Conjunctiva Clear, EOM Intact HENT: Yes: Atraumatic, Normocephalic Neck: Yes: Supple Cardiovascular: Yes: Regular Rate and Rhythm Respiratory: Yes: CTA Bilaterally Gastrointestinal: Yes: Normal Bowel Sounds Renal/: Yes: WNL Musculoskeletal: Yes: Back Pain Edema: No Peripheral Pulses WNL: Yes Integumentary: Yes: WNL Neurological: Yes: Alert, Oriented ...Motor Strength: WNL Psychiatric: Yes: Alert, Oriented Discharge Summary Reason For Visit: SOB, INFUENZA A Bilateral wheezing withrespiratory distress Procedures: Principal: chest xray. nasal swab for Influenza antigen Hospital Course: Was admitted with respiratory distress and fever and was found to have Influenza.Chest Xray was clear. He was treated with IV Steroids, Tamiflu and bronchodilator treatment. He improved remarkably and was asymtomatic on the day of discharge. He is a known case of Hypertensive CVD, CHF,Polymialgia rheumatica, ans severe osteoarthritis of spine with radiculitis. Condition: Improved - Instructions Referrals: David Alicia MD [Primary Care Provider] - Disposition: HOME - Home Medications Comprehensive Discharge Medication List: Ambulatory Orders Aspirin [ASA -] 81 mg PO DAILY 09/25/16 Atorvastatin Ca [Lipitor] 40 mg PO HS 09/25/16 Budesonide/Formeterol Fumarate [SYMBICORT 160/4.5mcg -] 1 inh IH PRN PRN Carbidopa/Levodopa 25/100 [Sinemet 25/100 -] 1 each PO TID 09/25/16 Cholecalciferol (Vitamin D3) [Vitamin D3] 400 unit PO DAILY 09/25/16 Diltiazem Cd [Cardizem Cd -] 120 mg PO BID 09/25/16 Furosemide [Lasix] 40 mg PO BIDLASIX 09/25/16 Gabapentin 300 mg PO HS 09/25/16 Hydralazine HCl [Apresoline -] 25 mg PO TID 09/25/16 Isosorbide Mononitrate [Imdur -] 30 mg PO DAILY 09/25/16 Metoprolol Tartrate 12.5 mg PO HS 09/25/16 Pantoprazole Sodium [Protonix] 40 mg PO DAILY 09/25/16 Potassium Chloride 10 meq PO DAILY 09/25/16 Prednisone [Deltasone -] 2.5 mg PO HS 09/25/16 Thiamine HCl [Vitamin B1] 100 mg PO DAILY 09/25/16 Atorvastatin Ca [Lipitor] 40 mg PO HS tablet 09/27/16 Budesonide/Formeterol Fumarate [SYMBICORT 80/4.5mcg -] 2 puff IH BID inhaler Carbidopa/Levodopa 25/100 [Sinemet 25/100 -] 1 each PO TID tablet 09/27/16 Diltiazem Cd [Cardizem Cd -] 120 mg PO BID cap.cd.24h 09/27/16 Furosemide [Lasix -] 40 mg PO BID@0600,1400 tablet 09/27/16 Gabapentin [Neurontin -] 300 mg PO BID capsule 09/27/16 Hydralazine HCl [Apresoline -] 25 mg PO TID tablet 09/27/16 Isosorbide Mononitrate [Imdur -] 30 mg PO DAILY tab.sr.24h 09/27/16 Metoprolol Succinate [Toprol XL -] 12.5 mg PO DAILY tab.sr.24h 09/27/16 Oseltamivir Phosphate [Tamiflu -] 75 mg PO BID #8 capsule 09/27/16 Pantoprazole Sodium [Protonix -] 40 mg PO DAILY tablet.ec 09/27/16 Potassium Chloride [K-Dur -] 10 meq PO DAILY tablet.er 09/27/16 Prednisone [Deltasone -] 2.5 mg PO DAILY tablet 09/27/16
== END 2016-09-27 20:30 | disposition home or self-care (01) | DRG 195 ==
LOC: JER 11:49 → JERBED 14:52 → J8W 17:26
PROVIDERS: ADMIT Internal Medicine Hematology & Oncology; ATTEND Internal Medicine Hematology & Oncology
DX: J10.1 Influenza due to other identified influenza virus with other respiratory manifestations (principal); I10 Essential (primary) hypertension; E78.5 Hyperlipidemia, unspecified; Z87.891 Personal history of nicotine dependence; J44.9 Chronic obstructive pulmonary disease, unspecified; J45.909 Unspecified asthma, uncomplicated; G20 Parkinson's disease; J20.9 Acute bronchitis, unspecified; I50.9 Heart failure, unspecified
CPT/HCPCS: 36415; 71010-TC; 80053; 81003; 82550; 83605; 83880; 84484; 85025; 87040; 87086; 87804; 93005; 93010; 94640; 99285-25

== ENCOUNTER 2018-07-26 17:11 | Inpatient (IN) | payer BC, OTHER ==
--- NOTE | 2018-07-26 17:29 | PDOC ---
Rapid Medical Evaluation Time Seen by Provider: 07/26/18 17:23 Medical Evaluation: Allergies Allergy/AdvReac Type Severity Reaction Status Date / Time amoxicillin Allergy Verified 09/25/16 12:01 doxycycline Allergy Verified 09/25/16 12:01 levofloxacin Allergy Verified 09/25/16 12:01 metronidazole Allergy Verified 09/25/16 12:01 07/26/18 17:27 I have performed a brief in-person evaluation of this patient. The patient presents with a chief complaint of: sent by ENT for worsening left otitis media Pertinent physical exam findings: deferred I have ordered the following: nothing The patient will proceed to the ED for further evaluation. Discharge Disposition - Diagnosis Hearing loss, Ear pain, left - Referrals - Patient Instructions - Post Discharge Activity
--- NOTE | 2018-07-26 20:57 | PDOC ---
History of Present Illness - General History Source: Family, Spouse Exam Limitations: No Limitations - History of Present Illness Initial Comments: 07/26/18 21:14 Patient is a 83 year old male with a significant past medical history of Peripheral Neuropathy, Parkinson's, CAD, CHF, HTN, Hyperlipidemia, Asthma, GERD , Hiatal Hernia, Anxiety, Chronic low back pain, Osteoarthritis, polymyalgia rheumatica, who presents to the ED with complaints of left ear pain that began x6 weeks ago. As per patient's daughter, patient began to experiencing left ear discomfort. She reports the left ear pain began to develop shortly after patient went to ENT to have wax removed. As per patient's daughter, patient has seen ENT x4 times since development of pain, and has been prescribed antibiotics with no relief, as well as steroids for pain with slight relief, but states it returned shortly after finishing steroids. She reports patient has been taking advil and tylenol for pain with no relief. Patient rhett reports patient went to ENT this afternoon who advised he come into the ED for further evaluation due to symptoms not subsiding. Denies chest pain, Sob. Denies nausea, vomiting. Denies fevers, chills. Denies contact with sick individuals, out of state travelling.. Denies dysuria, hematuria. Denies diarrhea, constipation. Denies trauma to affected area. Denies any other symptoms. Allergies: amoxicillin, Doxycycline, Levofloxacin, metronidazole Social history: Former smoker. Surgical history: Colonoscopy, Joint Replacement, Laminectomy, Upper Endoscopy PMD: Dr. Alicia <Carson Manning - Last Filed: 07/26/18 21:15> <Benjamin Yeager - Last Filed: 07/27/18 02:11> - General Chief Complaint: Ear Problem Stated Complaint: PCP SENT/LT EAR PAIN Time Seen by Provider: 07/26/18 17:23 Past History <Carson Manning - Last Filed: 07/26/18 21:15> - Past Medical History Anemia: No Asthma: Yes Cancer: No Cardiac Disorders: No CVA: No COPD: No CHF: Yes Dementia: No Diabetes: No GI Disorders: Yes (gerd) Disorders: No HTN: Yes Hypercholesterolemia: Yes Liver Disease: No Seizures: No Thyroid Disease: No - Surgical History Orthopedic Surgery: Yes (laminectomy; total hip replacement) - Immunization History Immunization Up to Date: Yes - Suicide/Smoking/Psychosocial Hx Smoking Status: Yes Smoking History: Never smoked Have you smoked in the past 12 months: No Number of Cigarettes Smoked Daily: 0 If you are a former smoker, when did you quit?: 50 years ago Information on smoking cessation initiated: No Hx Alcohol Use: No Drug/Substance Use Hx: No Substance Use Type: None Hx Substance Use Treatment: No <Benjamin Yeager - Last Filed: 07/27/18 02:11> - Past Medical History Allergies/Adverse Reactions: Allergies Allergy/AdvReac Type Severity Reaction Status Date / Time amoxicillin Allergy Verified 07/26/18 17:29 doxycycline Allergy Verified 07/26/18 17:29 levofloxacin Allergy Verified 07/26/18 17:29 metronidazole Allergy Verified 07/26/18 17:29 Home Medications: Ambulatory Orders Aspirin [ASA -] 81 mg PO DAILY 09/25/16 Atorvastatin Ca [Lipitor] 40 mg PO HS 09/25/16 Budesonide/Formeterol Fumarate [SYMBICORT 160/4.5mcg -] 1 inh IH PRN PRN Carbidopa/Levodopa 25/100 [Sinemet 25/100 -] 1 each PO TID 09/25/16 Cholecalciferol (Vitamin D3) [Vitamin D3] 400 unit PO DAILY 09/25/16 Diltiazem Cd [Cardizem Cd -] 120 mg PO BID 09/25/16 Furosemide [Lasix] 40 mg PO BIDLASIX 09/25/16 Gabapentin 300 mg PO HS 09/25/16 Isosorbide Mononitrate [Imdur -] 30 mg PO DAILY 09/25/16 Metoprolol Tartrate 12.5 mg PO HS 09/25/16 Pantoprazole Sodium [Protonix] 40 mg PO DAILY 09/25/16 Potassium Chloride 10 meq PO DAILY 09/25/16 Thiamine HCl [Vitamin B1] 100 mg PO DAILY 09/25/16 hydrALAZINE HCL [Apresoline -] 25 mg PO TID 09/25/16 predniSONE [Deltasone -] 2.5 mg PO HS 09/25/16 Atorvastatin Ca [Lipitor] 40 mg PO HS tablet 09/27/16 Budesonide/Formeterol Fumarate [SYMBICORT 80/4.5mcg -] 2 puff IH BID inhaler Carbidopa/Levodopa 25/100 [Sinemet 25/100 -] 1 each PO TID tablet 09/27/16 Diltiazem Cd [Cardizem Cd -] 120 mg PO BID cap.cd.24h 09/27/16 Furosemide [Lasix -] 40 mg PO BID@0600,1400 tablet 09/27/16 Gabapentin [Neurontin -] 300 mg PO BID capsule 09/27/16 Isosorbide Mononitrate [Imdur -] 30 mg PO DAILY tab.sr.24h 09/27/16 Metoprolol Succinate [Toprol XL -] 12.5 mg PO DAILY tab.sr.24h 09/27/16 Oseltamivir Phosphate [Tamiflu -] 75 mg PO BID #8 capsule 09/27/16 Pantoprazole Sodium [Protonix -] 40 mg PO DAILY tablet.ec 09/27/16 Potassium Chloride [K-Dur -] 10 meq PO DAILY tablet.er 09/27/16 hydrALAZINE HCL [Apresoline -] 25 mg PO TID tablet 09/27/16 predniSONE [Deltasone -] 2.5 mg PO DAILY tablet 09/27/16 Review of Systems - Review of Systems Able to Perform ROS?: Yes Comments:: 07/26/18 21:15 GENERAL/CONSTITUTIONAL: No fever or chills. No weakness. HEAD, EYES, EARS, NOSE AND THROAT: +Left ear pain. No change in vision. No discharge. No sore throat. GASTROINTESTINAL: No nausea, vomiting, diarrhea or constipation. GENITOURINARY: No dysuria, frequency, or change in urination. CARDIOVASCULAR: No chest pain or shortness of breath. RESPIRATORY: No cough, wheezing, or hemoptysis. MUSCULOSKELETAL: No joint or muscle swelling or pain. No neck or back pain. SKIN: No rash NEUROLOGIC: No headache, vertigo, loss of consciousness, or change in strength/ sensation. ENDOCRINE: No increased thirst. No abnormal weight change. HEMATOLOGIC/LYMPHATIC: No anemia, easy bleeding, or history of blood clots. ALLERGIC/IMMUNOLOGIC: No hives or skin allergy. <Carson Manning - Last Filed: 07/26/18 21:15> *Physical Exam - Vital Signs Last Vital Signs Temp Pulse Resp BP Pulse Ox 97.5 F L 54 L 18 160/58 L 98 07/26/18 17:26 07/26/18 17:26 07/26/18 17:26 07/26/18 17:26 07/26/18 17:26 <Carson Manning - Last Filed: 07/26/18 21:15> - Vital Signs Last Vital Signs Temp Pulse Resp BP Pulse Ox 97.5 F L 54 L 18 160/58 L 98 07/26/18 17:26 07/26/18 17:26 07/26/18 17:26 07/26/18 17:26 07/26/18 17:26 - Physical Exam Comments: 07/26/18 20:52 GENERAL: Well-appearing, well-nourished. Pt found in stretcher hold the left side of his face. HEENT: Normocephalic, atraumatic. PERRL, EOM intact. Sensation intact, no droop, tongue midline Bilateral TM w/o visible fluid, bulging, erythema, questionable mastoid tenderness, no obvious swelling Oropharynx w/o swelling, erythema, exudates Neck supple EXTREMITIES: Normal ROM in all four extremities. No gross deformities. SKIN: Warm, dry. No rash NEUROLOGICAL: No focal neurological deficits. <Benjamin Yeager - Last Filed: 07/27/18 02:11> Moderate Sedation - Procedure Monitoring Vital Signs: Procedure Monitoring Vital Signs Temperature 97.5 F L 07/26/18 17:26 Pulse Rate 54 L 07/26/18 17:26 Respiratory Rate 18 07/26/18 17:26 Blood Pressure 160/58 L 07/26/18 17:26 O2 Sat by Pulse Oximetry (%) 98 07/26/18 17:26 <Carson Manning - Last Filed: 07/26/18 21:15> - Procedure Monitoring Vital Signs: Procedure Monitoring Vital Signs Temperature 97.5 F L 07/26/18 17:26 Pulse Rate 54 L 07/26/18 17:26 Respiratory Rate 18 07/26/18 17:26 Blood Pressure 160/58 L 07/26/18 17:26 O2 Sat by Pulse Oximetry (%) 98 07/26/18 17:26 <Benjamin Yeager - Last Filed: 07/27/18 02:11> ED Treatment Course - LABORATORY CBC & Chemistry Diagram: 07/26/18 21:40 07/26/18 21:40 <Benjamin Yeager - Last Filed: 07/27/18 02:11> Medical Decision Making - Medical Decision Making 07/26/18 20:55 Sent from ENT office after several weeks of persistent L ear/face pain. Has been seen multiple times was on an antibiotic, patient unable to recall name, with minimal improvement, given a steroid taper with good effect on symptoms but symptoms recurred. Over the past 2 weeks he has been completing a Cefdinir course w/o improvement. Denies fevers, chills, n/v, d/c. Exam inconsistent with AOM, consider incomplete treatment/treatment failure with cefdinir, less likely mastoiditis, structural pathology causing px, unlikely temporal arteritis, trigem neuralgia analgesia, cbc, bmp, consider CT B c+ Dispo per clinical course 07/26/18 22:44 Improvement in pain after percocet nominal increase in WBC, Cr 1.0 F/u CT B c+ 07/26/18 23:[address] temp bones per radiology recommendation 07/27/18 00:21 Called by [facility], CT + for bad otitis media, coalescent mastoiditis, bony erosion? Will call ENT, start Clindamycin given PCN allergy Admit 07/27/18 00:[address] Espinoza of ENT 07/27/18 00:[address] Espinoza, will c/w Clindamycin, admit to medicine for IV abx 07/27/18 02:[address] Alicia for admission <Benjamin Yeager - Last Filed: 07/27/18 02:11> *DC/Admit/Observation/Transfer - Attestations Scribe Attestion: 07/26/18 21:15 Documentation prepared by Carson Manning, acting as medical planner for Benjamin Yeager MD. <Carson Manning - Last Filed: 07/26/18 21:15> - Discharge Dispostion Decision to Admit order: Yes <Benjamin Yeager - Last Filed: 07/27/18 02:11> Diagnosis at time of Disposition: Ear pain, left Hearing loss Qualifiers: Hearing loss type: unspecified Laterality: left Qualified Code(s): H91.92 - Unspecified hearing loss, left ear Mastoiditis Qualifiers: Laterality: left Qualified Code(s): H70.92 - Unspecified mastoiditis, left ear
[2018-07-26 21:47] LABS: HEMATOCRIT 35.7 % (35.4-49); HEMOGLOBIN 12.5 GM/dL (11.7-16.9); MEAN CELL VOLUME 88.7 fl (80-96); MEAN PLT VOLUME 7.8 fl (7.5-11.1); PLATELET COUNT 252 K/MM3 (134-434); RBC 4.02 M/mm3 (4.00-5.60); RDW 14.2 % (11.9-15.9); WHITE BLOOD COUNT 11.3 K/mm3 (4.0-10.0)
[2018-07-26 22:04] LABS: ANION GAP 8 MMOL/L (8-16); BLOOD UREA NITROGEN 19 mg/dL (7-18); CALCIUM 8.8 mg/dL (8.5-10.1); CHLORIDE 107 mmol/L (98-107); CO2 28 mmol/L (21-32); GLUCOSE,RANDOM 93 mg/dL (74-106); POTASSIUM 4.2 mmol/L (3.5-5.1); SODIUM 143 mmol/L (136-145)
[2018-07-27] MEDS ORDERED: CLINDAMYCIN 600MG PREMIX IVPB 600 MG/50 ML BAG IVPB ONE ×2 (00:45→01:23)
[2018-07-27] MEDS ORDERED: morphine CARPU-JECT 2 MG/1 ML DISP.SYRIN IVPUSH ONE (01:37)
[2018-07-27] MEDS ORDERED: MORPHINE SULFATE 2 MG/ML VIAL ONE ×3 (01:40→15:54)
[2018-07-27] MEDS: morphine CARPU-JECT 2 MG/1 ML DISP.SYRIN IVPUSH PRN ×2 (06:01→16:05)
[2018-07-27] MEDS ORDERED: oxyCODONE HCL 5 MG TABLET PO ONE (10:30)
[2018-07-27] MEDS ORDERED: ACETAMINOPHEN 325 MG TABLET (FP) PO ONE (10:30)
[2018-07-27] MEDS ORDERED: FUROSEMIDE 20 MG TABLET (FP) PO SCH (14:00)
[2018-07-27] MEDS ORDERED: hydrALAZINE HCL 25 MG TABLET (FP) PO SCH (14:00)
--- NOTE | 2018-07-27 15:48 | PN ---
Progress Note (short form) - Note Progress Note: ID Consult dictated Acute suppurative L otomastoiditis Multiple antibiotic allergies Obtain BC, ESR,CRP ENT followup Empiric cefepime/ vancomycin
[2018-07-27] MEDS ORDERED: hydrALAZINE HCL 25 MG TABLET (FP) ONE ×2 (15:55→22:04)
[2018-07-27] MEDS ORDERED: FUROSEMIDE 40 MG TABLET (FP) ONE (15:55)
[2018-07-27] MEDS: VANCOMYCIN 1 GRAM (PRE-DOCKED) 1,000 MG/250 ML BAG IVPB SCH (16:10)
[2018-07-27] MEDS ORDERED: VANCOMYCIN 1 GRAM (PRE-DOCKED) 1,000 MG/250 ML BAG IVPB ONE (16:13)
--- NOTE | 2018-07-27 16:22 | CONS ---
DATE OF CONSULTATION: DATE OF DICTATION: 07/27/2018 INFECTIOUS DISEASE CONSULTATION HISTORY OF PRESENT ILLNESS: The patient is an 83-year-old male evaluated for acute suppurative otitis media. The patient was seen in the company of family members, who provided translating skills. He is Sami speaking. He had gone for a procedure at his ENT physician's office approximately 6 weeks ago. He had undergone removal of ear wax. He subsequently developed chronic left ear pain. The pain persisted despite numerous followup visits and course of antibiotics and prednisone. On his most recent visit he was referred to the emergency room for IV antibiotic therapy. The patient complains of left ear pain. He points to the preauricular area. He reports that the pain gets worse with mastication. He has had hearing loss in that ear. He denies otic discharge or bleeding. No associated fever or chills. HE IS ALLERGIC TO MULTIPLE ANTIBIOTICS, INCLUDING AMOXICILLIN; HOWEVER, HE HAS TOLERATED CEPHALOSPHORINS IN THE PAST. According to the notes, he had a similar illness several years ago, at which time he developed facial paralysis. It is not clear whether he had sustained a rupture of the tympanic membrane. According to the ENT notes, his tympanic membrane is intact. PAST MEDICAL HISTORY: Positive for parkinsonism, polymyalgia rheumatica (on prednisone), coronary artery disease, congestive heart failure, hyperlipidemia, hypertension, gastroesophageal reflux, hiatal hernia, chronic low back pain, osteoarthritis. ALLERGIES: AMOXICILLIN, DOXYCYCLINE, LEVAQUIN, FLAGYL. THE PATIENT'S FAMILY REPORTS RASH WITH MANY OF THESE AGENTS. SOCIAL HISTORY: Lives at home with family members. Former smoker. REVIEW OF SYSTEMS: Neurologic: No loss of consciousness, seizure activity, or focal weakness. Cardiac: Negative for chest pain or palpitations. Respiratory: Negative for cough or sputum production. Gastrointestinal: Negative for vomiting or diarrhea. Genitourinary: Negative for urinary tract infection. LABORATORY DATA: White count 11.3. Creatinine 1.0. Cultures are pending. IMAGING: CAT scan of the head shows complete opacification of the middle ear cavity. Several mastoid air cells are partially opacified, with air-fluid levels. The left external auditory canal is almost completely filled with debris. The tympanic membrane is intact. Normal enhancement of the left sigmoid sinus and transverse sinus. No evidence of sinus thrombosis. Findings consistent with acute left otomastoiditis, otitis externa. No abscess is seen. PHYSICAL EXAMINATION: General: He is in moderate distress secondary to left ear pain. Vital Signs: Temperature 97.7, blood pressure 144/78, pulse 89 and regular, respirations 20 per minute. HEENT: Sclerae anicteric. There is tenderness present in the left preauricular area and postauricular area. The pinna does not appear to be swollen. There is no erythema or swelling noted of the visualized external auditory canal. Neck: Supple. No palpable nodes. Cardiac: Heart sounds S1, S2. Lungs: Clear. Abdomen: Soft. No tenderness elicited. Extremities: Positive for edema. IMPRESSION: 1. Acute suppurative otitis media. 2. Left otomastoiditis. PLAN: Await ENT evaluation. Will obtain blood cultures, ESR, C-reactive protein. Empiric antibiotic therapy with cefepime and vancomycin. Case discussed with family members present at the time of the examination. Thank you for the kind referral. DRE SUAZO M.D. [id number]
[2018-07-27] MEDS: CEFEPIME 2 GM in DEXTROSE 5%-WATER 100 ML IVPB SCH (18:16)
--- NOTE | 2018-07-27 18:38 | HP ---
Admitting History and Physical - Primary Care Physician PCP: Nabeel Abdi (cover for Dr Alicia) - Admission Chief Complaint: pain Rt ear History of Present Illness: 83 year old male with a significant past medical history of Peripheral Neuropathy, Parkinson's, CAD, ASHD, HTN, Hyperlipidemia, Asthma, GERD, Hiatal Hernia, Anxiety, Chronic low back pain, Diffuse Osteoarthritis of spine & limbs , polymyalgia rheumatica, who presents with complaints of left ear pain that began x6 weeks ago. As per , patient began to experiencing left ear discomfort sometime after he had wax removed from the right ear approx 5-6 weeks ago by ENT. As per patient's daughter, patient has seen ENT x4 times since development of pain, and has been prescribed multiple courses of antibiotics with little response, as well as steroids for pain with only slight and temporary relief, but states it returned shortly after completing the steroids. She reports patient has been taking advil and tylenol for pain with little relief. The patient went to ENT this afternoon who advised he come into the ED for further evaluation due to ongoing Sx. Denies chest pain, Sob. Denies nausea, vomiting. Denies fevers, chills. Denies contact with sick individuals, out of state travelling. Denies dysuria, hematuria. Denies diarrhea, constipation. Denies trauma to affected area, but c/ o chronic musc-skel pains. History Source: Family Member Limitations to Obtaining History: Language Barrier - Past Medical History [employer]: Yes: Peripheral Neuropathy, Parkinson's Cardiovascular: Yes: CAD, CHF, HTN, Hyperlipdemia Pulmonary: Yes: Asthma, Bronchitis Gastrointestinal: Yes: GERD, Hiatal Hernia Psych: Yes: Anxiety Musculoskeletal: Yes: Chronic low back pain, Osteoarthritis Rheumatology: Yes: Other (polymyalgia rheumatica) Dermatology: Yes: Other (port wine stain LLE). 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 [employer] History of Recent Travel: No Home Medications - Allergies Allergies/Adverse Reactions: Allergies Allergy/AdvReac Type Severity Reaction Status Date / Time amoxicillin Allergy Verified 07/26/18 17:29 doxycycline Allergy Verified 07/26/18 17:29 levofloxacin Allergy Verified 07/26/18 17:29 metronidazole Allergy Verified 07/26/18 17:29 - Home Medications Home Medications: Ambulatory Orders Aspirin [ASA -] 81 mg PO DAILY 09/25/16 Atorvastatin Ca [Lipitor] 40 mg PO HS 09/25/16 Budesonide/Formeterol Fumarate [SYMBICORT 160/4.5mcg -] 1 inh IH PRN PRN Carbidopa/Levodopa 25/100 [Sinemet 25/100 -] 1 each PO TID 09/25/16 Cholecalciferol (Vitamin D3) [Vitamin D3] 400 unit PO DAILY 09/25/16 Furosemide [Lasix] 40 mg PO BIDLASIX 09/25/16 Gabapentin 300 mg PO HS 09/25/16 Isosorbide Mononitrate [Imdur -] 30 mg PO DAILY 09/25/16 Metoprolol Tartrate 12.5 mg PO HS 09/25/16 Thiamine HCl [Vitamin B1] 100 mg PO DAILY 09/25/16 Budesonide/Formeterol Fumarate [SYMBICORT 80/4.5mcg -] 2 puff IH BID inhaler Carbidopa/Levodopa 25/100 [Sinemet 25/100 -] 1 each PO TID tablet 09/27/16 Diltiazem Cd [Cardizem Cd -] 120 mg PO BID cap.cd.24h 09/27/16 Furosemide [Lasix -] 40 mg PO BID@0600,1400 tablet 09/27/16 Gabapentin [Neurontin -] 300 mg PO BID capsule 09/27/16 Metoprolol Succinate [Toprol XL -] 12.5 mg PO DAILY tab.sr.24h 09/27/16 Pantoprazole Sodium [Protonix -] 40 mg PO DAILY tablet.ec 09/27/16 Potassium Chloride [K-Dur -] 10 meq PO DAILY tablet.er 09/27/16 hydrALAZINE HCL [Apresoline -] 25 mg PO TID tablet 09/27/16 predniSONE [Deltasone -] 2.5 mg PO DAILY tablet 09/27/16 Family Disease History - Family Disease History Family History: Unremarkable Review of Systems - Review of Systems Constitutional: reports: Malaise Eyes: reports: No Symptoms HENT: reports: Ear Pain Neck: reports: No Symptoms Cardiovascular: reports: No Symptoms Respiratory: reports: No Symptoms Gastrointestinal: reports: No Symptoms Genitourinary: reports: No Symptoms Musculoskeletal: reports: Back Pain, Joint Pain Integumentary: reports: Rash (legs) Neurological: reports: Pre-Existing Deficit, Weakness Endocrine: reports: No Symptoms Hematology/Lymphatic: reports: No Symptoms Psychiatric: reports: Anxiety Physical Examination Vital Signs: Vital Signs Temperature 98.2 F 07/27/18 18:27 Pulse Rate 55 L 07/27/18 18:27 Respiratory Rate 17 07/27/18 18:27 Blood Pressure 175/77 H 07/27/18 18:27 O2 Sat by Pulse Oximetry (%) 98 07/27/18 06:32 Findings/Remarks: skin--red linear excoriations of the distal LE's; stasis changes head--NC eyes--midline, non injected oral--no mucosal lesions appreciated neck--no rigidity; no masses appreciated lungs--BS distant; unlabored heart--RR abd--soft, obese, BS+ ext--2+ edema to both LE's; dimnished pedal pulses but not cool/mottled or ischemic appearing; no pain on gross ROM; no soft tissue tenderness back--old surg scar neuro--flat affect; good eye contact; no resting tremors but some increased tone ; follows commands; able to respond to basic questions; no gross focal motor deficits; no facial droop Labs: CBC, BMP 07/26/18 21:40 07/26/18 21:40 Imaging - Results Cat Scan: Report Reviewed Problem List - Problems (1) Mastoiditis Assessment/Plan: as per CT report; was seen by ID; and is now on dual IV Abs Code(s): H70.90 - UNSPECIFIED MASTOIDITIS, UNSPECIFIED EAR Qualifiers: Laterality: right Qualified Code(s): H70.91 - Unspecified mastoiditis, right ear (2) Hypertension with heart disease Assessment/Plan: with chronic pedal edema; but clinically not in CHF; will cont his cardiac mds Code(s): I11.9 - HYPERTENSIVE HEART DISEASE WITHOUT HEART FAILURE (3) Polymyalgia rheumatica Assessment/Plan: controlled by chronic low dose steroids Code(s): M35.3 - POLYMYALGIA RHEUMATICA (4) Parkinson disease Assessment/Plan: cont Parkinson's meds; will get neuro f/u Code(s): G20 - PARKINSON'S DISEASE (5) Chronic bronchitis Assessment/Plan: stable at present Code(s): J42 - UNSPECIFIED CHRONIC BRONCHITIS Qualifiers: Chronic bronchitis type: unspecified Qualified Code(s): J42 - Unspecified chronic bronchitis (6) Lipidemia Assessment/Plan: cont statin Code(s): E78.5 - HYPERLIPIDEMIA, UNSPECIFIED Qualifiers: Hyperlipidemia type: unspecified Qualified Code(s): E78.5 - Hyperlipidemia , unspecified (7) Osteoarthritis Assessment/Plan: affecting axial spine and multiple joints Code(s): M19.90 - UNSPECIFIED OSTEOARTHRITIS, UNSPECIFIED SITE Qualifiers: Osteoarthritis location: multiple joints Osteoarthritis type: primary Qualified Code(s): M15.0 - Primary generalized (osteo)arthritis (8) Chronic pain Assessment/Plan: of LSS Code(s): G89.29 - OTHER CHRONIC PAIN Qualifiers: Chronic pain type: chronic pain syndrome Qualified Code(s): G89.4 - Chronic pain syndrome (9) Anxiety Assessment/Plan: on PRN Xanax Code(s): F41.9 - ANXIETY DISORDER, UNSPECIFIED (10) Glaucoma Assessment/Plan: cont eye gtts Code(s): H40.9 - UNSPECIFIED GLAUCOMA Qualifiers: Glaucoma type: unspecified Laterality: bilateral Qualified Code(s): H40.9 - Unspecified glaucoma (11) Chronic GERD Assessment/Plan: cont antacid Code(s): K21.9 - GASTRO-ESOPHAGEAL REFLUX DISEASE WITHOUT ESOPHAGITIS (12) Allergy to anti-infective agent Assessment/Plan: to 4 different classes of agents Code(s): Z88.3 - ALLERGY STATUS TO OTHER ANTI-INFECTIVE AGENTS STATUS Assessment/Plan 83 YO M with extensive infective process of Rt sinus and mastoid unresponsive to PO Abs. ~~~~~~~~~~~~~~~~~~~~~~~ Dr Abdi
[2018-07-27] MEDS ORDERED: ACETAMINOPHEN 325 MG TABLET (FP) ONE (18:51)
[2018-07-27] MEDS ORDERED: oxyCODONE HCL 5 MG TABLET ONE (18:51)
[2018-07-27] MEDS: oxyCODONE HCL 5 MG TABLET PO PRN (18:55)
[2018-07-27] MEDS: ACETAMINOPHEN 325 MG TABLET (FP) PO PRN (18:56)
[2018-07-27] MEDS ORDERED: ALPRAZolam 0.25 MG TABLET PO PRN (19:13)
--- NOTE | 2018-07-27 19:22 | PN ---
Progress Note (short form) - Note Progress Note: ENT pt admitted for left ear pain, otomastoiditis unresponsive to outpatient oral antibiotic and topical antibiotic therapy discussed with Dr. Alicia 07-26-[address] Yeager 07-27-18 1 AM appreciate Infectious Disease consultation by Dr. Osborne. pt on IV antibiotics pain management helpful still with left ear pain of note, years ago patient had signficant left otitis media with left facial paralysis. facial nerve function recovered after treatment and resolution of acute infection. PE NAD awake alert left external ear WNL, no mastoid swelling, tenderness or fluctuance (no evidence of subperiosteal abscess left ear canal mildly edematous, TM intact, no active otorrhea (microscopic exam in office 07-27-18 PM showed thickening and fullness of left TM) CT scan of temporal bones - right ear well aerated middle ear and mastoid left temporal bone +opacification of middle ear and mastoid. ossicles visualized , grossly WNL no spread outside of temporal bone ?some erosion of mastoid cell partitions Impression: left otomastoiditis, with pain and mixed hearing loss concurrent left external otitis, improving with topical therapy significant left ear pain, some improvement Recommend: continue IV antibiotics analgesia to OR in morning 07-28-18 8:30 AM for left myringotomy with ventilation tube with anesthesia Indications alternative, nature risks and benefits discussed with patient and his (educational sign language interpreter used) they understand and accept, wish to proceed Martínez Espinoza MD FACS
[2018-07-27] MEDS ORDERED: LIDOCAINE 5% TOPICAL PATCH ONE (20:32)
[2018-07-27] MEDS ORDERED: ISOSORBIDE MONONITRATE 60 MG TAB.SR.24H (FP) PO ONE (20:32)
[2018-07-27] MEDS: LIDOCAINE 5% TOPICAL PATCH TP SCH (20:45)
[2018-07-27] MEDS: ISOSORBIDE MONONITRATE 30 MG TAB.SR.24H (FP) PO SCH (20:45)
[2018-07-27] MEDS ORDERED: dilTIAZem HCL 60 MG TABLET (FP) ONE (22:04)
[2018-07-27] MEDS ORDERED: ATORVASTATIN CA 40 MG TABLET (FP) ONE (22:05)
[2018-07-27] MEDS: ATORVASTATIN CA 40 MG TABLET (FP) PO SCH (22:22)
[2018-07-27] MEDS: hydrALAZINE HCL 50 MG TABLET (FP) PO SCH (22:22)
[2018-07-27] MEDS: LIDOCAINE PATCH REMOVAL MC SCH (22:22)
[2018-07-28] MEDS: PRAMIPEXOLE DIHYDROCHLORIDE 0.25 MG TABLET PO SCH ×3 (00:25→23:11)
[2018-07-28] MEDS: RIVASTIGMINE TARTRATE 1.5 MG CAPSULE PO SCH ×3 (00:25→23:10)
[2018-07-28] MEDS: TIMOLOL 0.5% OPHTHALMIC SOL 5 ML BOTTLE OU SCH ×3 (00:26→22:00)
[2018-07-28] MEDS: CARBIDOPA/LEVODOPA 25/100 TABLET (FP) PO SCH ×3 (00:26→15:41)
[2018-07-28] MEDS: GABAPENTIN 300 MG CAPSULE (FP) PO SCH ×4 (00:26→23:07)
[2018-07-28 01:17] VITALS: BMI 29.5
[2018-07-28] MEDS: CEFEPIME 2 GM in DEXTROSE 5%-WATER 100 ML IVPB SCH ×3 (01:38→17:03)
[2018-07-28] MEDS: VANCOMYCIN 1 GRAM (PRE-DOCKED) 1,000 MG/250 ML BAG IVPB SCH ×2 (03:14→15:42)
[2018-07-28] MEDS: FUROSEMIDE 40 MG TABLET (FP) PO SCH ×2 (07:05→15:41)
[2018-07-28] MEDS: hydrALAZINE HCL 50 MG TABLET (FP) PO SCH ×3 (07:06→23:07)
[2018-07-28] MEDS ORDERED: DEXMEDETOMIDINE HCL 200 MCG/2 ML ML IVPB ONE (07:29)
[2018-07-28] MEDS ORDERED: SEVOFLURANE 250 ML BTL ONE (07:29)
[2018-07-28] MEDS ORDERED: DESFLURANE GAS 240 ML BOTTLE IH ONE (07:29)
[2018-07-28] MEDS ORDERED: ROCURONIUM BROMIDE 50 MG/5 ML VIAL ONE (07:53)
[2018-07-28] MEDS ORDERED: PROPOFOL 20 ML ONE ×2 (07:53→08:48)
[2018-07-28] MEDS ORDERED: SUCCINYLCHOLINE CHLORIDE 200 MG/10 ML VIAL ONE (07:53)
[2018-07-28] MEDS ORDERED: LIDOCAINE HCL/PF 2% SDV 5ML VIAL ONE (07:54)
[2018-07-28] MEDS ORDERED: DEXAMETHASONE SOD PHOSPHATE 4 MG/1 ML VIAL ONE (07:54)
[2018-07-28] MEDS ORDERED: OFLOXACIN 0.3% OPHTHALMIC SOLUTION 5 ML BOTTLE ONE (08:18)
[2018-07-28 09:05] LABS: CHOLESTEROL 124 mg/dL (50-200); HDL CHOLESTEROL 43 mg/dL (40-60); TRIGLYCERIDES 102 mg/dL (0-150)
--- NOTE | 2018-07-28 09:08 | CON.CARD ---
Consult Consult Specialty:: cardiology Reason for Consultation:: pre-op; hx noobstructive CAD - History of Present Illness History of Present Illness: Patient is a 83 year old male with a significant past medical history of Peripheral Neuropathy, Parkinson's, CAD, CHF, HTN, Hyperlipidemia, Asthma, GERD , Hiatal Hernia, Anxiety, Chronic low back pain, Osteoarthritis, polymyalgia rheumatica, who presents to the ED with complaints of left ear pain that began x6 weeks ago. As per patient's daughter, patient began to experiencing left ear discomfort. She reports the left ear pain began to develop shortly after patient went to ENT to have wax removed. As per patient's daughter, patient has seen ENT x4 times since development of pain, and has been prescribed antibiotics with no relief, as well as steroids for pain with slight relief, but states it returned shortly after finishing steroids. She reports patient has been taking advil and tylenol for pain with no relief. Patient rhett reports patient went to ENT this afternoon who advised he come into the ED for further evaluation due to symptoms not subsiding. 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 [employer] History of Recent Travel: No Home Medications - Allergies Allergies/Adverse Reactions: Allergies Allergy/AdvReac Type Severity Reaction Status Date / Time amoxicillin Allergy Verified 07/26/18 17:29 doxycycline Allergy Verified 07/26/18 17:29 levofloxacin Allergy Verified 07/26/18 17:29 metronidazole Allergy Verified 07/26/18 17:29 - Home Medications Home Medications: Ambulatory Orders Aspirin [ASA -] 81 mg PO DAILY 09/25/16 Atorvastatin Ca [Lipitor] 40 mg PO HS 09/25/16 Budesonide/Formeterol Fumarate [SYMBICORT 160/4.5mcg -] 1 inh IH PRN PRN Carbidopa/Levodopa 25/100 [Sinemet 25/100 -] 1 each PO TID 09/25/16 Cholecalciferol (Vitamin D3) [Vitamin D3] 400 unit PO DAILY 09/25/16 Furosemide [Lasix] 40 mg PO BIDLASIX 09/25/16 Gabapentin 300 mg PO HS 09/25/16 Isosorbide Mononitrate [Imdur -] 30 mg PO DAILY 09/25/16 Metoprolol Tartrate 12.5 mg PO HS 09/25/16 Thiamine HCl [Vitamin B1] 100 mg PO DAILY 09/25/16 Budesonide/Formeterol Fumarate [SYMBICORT 80/4.5mcg -] 2 puff IH BID inhaler Carbidopa/Levodopa 25/100 [Sinemet 25/100 -] 1 each PO TID tablet 09/27/16 Diltiazem Cd [Cardizem Cd -] 120 mg PO BID cap.cd.24h 09/27/16 Furosemide [Lasix -] 40 mg PO BID@0600,1400 tablet 09/27/16 Gabapentin [Neurontin -] 300 mg PO BID capsule 09/27/16 Metoprolol Succinate [Toprol XL -] 12.5 mg PO DAILY tab.sr.24h 09/27/16 Pantoprazole Sodium [Protonix -] 40 mg PO DAILY tablet.ec 09/27/16 Potassium Chloride [K-Dur -] 10 meq PO DAILY tablet.er 09/27/16 hydrALAZINE HCL [Apresoline -] 25 mg PO TID tablet 09/27/16 predniSONE [Deltasone -] 2.5 mg PO DAILY tablet 09/27/16 Vital Signs: Vital Signs Temperature 98.3 F 07/28/18 06:00 Pulse Rate 54 L 07/28/18 06:00 Respiratory Rate 18 07/28/18 06:00 Blood Pressure 124/54 L 07/28/18 06:00 O2 Sat by Pulse Oximetry (%) 96 07/28/18 01:01 - Other Data Labs, Other Data: CBC, BMP 07/26/18 21:40 Problem List - Problems (1) CAD (coronary artery disease) Assessment/Plan: Hx postive Stress MIBI in 201-->coronary angiogram (nonobstructive disease; no PCI was needed). On atorvastatin; normal lipid levels. F/u ECHO for LVEF, wall motion, valve status. Code(s): I25.10 - ATHSCL HEART DISEASE OF [place] CORONARY ARTERY W/O ANG PCTRS (2) Ear pain, left Code(s): H92.02 - OTALGIA, LEFT EAR (3) Hearing loss Code(s): H91.90 - UNSPECIFIED HEARING LOSS, UNSPECIFIED EAR Qualifiers: Hearing loss type: unspecified Laterality: left Qualified Code(s): H91.92 - Unspecified hearing loss, left ear (4) Hypertension with heart disease Code(s): I11.9 - HYPERTENSIVE HEART DISEASE WITHOUT HEART FAILURE (5) Hypertension Code(s): I10 - ESSENTIAL (PRIMARY) HYPERTENSION Qualifiers: Hypertension type: essential hypertension Qualified Code(s): I10 - Essential (primary) hypertension
[2018-07-28 09:11] LABS: ALK PHOS 107 U/L (45-117); ANION GAP 8 MMOL/L (8-16); BILIRUBIN,TOTAL 0.9 mg/dL (0.2-1); BLOOD UREA NITROGEN 18 mg/dL (7-18); CALCIUM 8.3 mg/dL (8.5-10.1); CHLORIDE 104 mmol/L (98-107); CO2 26 mmol/L (21-32); CREATININE 1.1 mg/dL (0.55-1.3); GLUCOSE,RANDOM 72 mg/dL (74-106); POTASSIUM 3.9 mmol/L (3.5-5.1); SGOT/AST 21 U/L (15-37); SGPT/ALT 11 U/L (13-61); SODIUM 138 mmol/L (136-145); TOT PROT 5.4 g/dl (6.4-8.2)
--- NOTE | 2018-07-28 09:31 | OP ---
Operative Note - Note: Operative Date: 07/28/18 ([id number]) Pre-Operative Diagnosis: left otomastoiditis. left otitis externa Operation: left myringotomy with ventilation tube Findings: otitis externa with canal edema tympanic membrane edematous, no landmarks, sl bulging but fluctuant brittny inferior myringotomy created, sl thick yellow secretions drained, insufficient to send specimen tube placed. Implants: 7 mm fluoroplastic ventilation tube Post-Operative Diagnosis: Same as Pre-op Surgeon: Martínez Espinoza Anesthesiologist/FEEDER CATCHER: Jeff Stubbs Anesthesia: Fractional Specimens Removed: none Drains & Tubes with Location: 7 mm ventilation tube left TM Blood Volume Replaced (mls): 0 Operative Report Dictated: Yes
[2018-07-28] MEDS ORDERED: predniSONE 2.5 MG TABLET PO SCH (10:00)
--- NOTE | 2018-07-28 10:16 | EKG ---
Test Reason : Blood Pressure : / mmHG Vent. Rate : 062 BPM Atrial Rate : 062 BPM P-R Int : 278 ms QRS Dur : 126 ms QT Int : 500 ms P-R-T Axes : 000 -56 060 degrees QTc Int : 507 ms POOR DATA QUALITY, INTERPRETATION MAY BE ADVERSELY AFFECTED SINUS RHYTHM WITH 1ST DEGREE A-V BLOCK LEFT AXIS DEVIATION LEFT VENTRICULAR HYPERTROPHY WITH QRS WIDENING CANNOT RULE OUT SEPTAL INFARCT (CITED ON OR BEFORE 25-SEP-2016) ABNORMAL ECG WHEN COMPARED WITH ECG OF 25-SEP-2016 12:32, QUESTIONABLE CHANGE IN INITIAL FORCES OF SEPTAL LEADS Confirmed by DRE ROBERTS MD ([id number]) on 07/28/2018 10:16:21 AM Referred By: Confirmed By:DRE ROBERTS MD
[2018-07-28] MEDS ORDERED: PT OWN MED DRAWER 7, Y5N ONE ×3 (12:53→14:22)
[2018-07-28] MEDS: LIDOCAINE 5% TOPICAL PATCH TP SCH (12:58)
[2018-07-28] MEDS: predniSONE 5 MG TABLET (UD) PO SCH (12:59)
[2018-07-28] MEDS: ISOSORBIDE MONONITRATE 30 MG TAB.SR.24H (FP) PO SCH (12:59)
--- NOTE | 2018-07-28 14:52 | PN ---
Progress Note, Physician Chief Complaint: S/P L myringotomy Awake, alert Seated in bed Reports less L ear pain No c/o fever/ chills Tolerated cephalosporin ESR 14 CRP 2.6 - Current Medication List Current Medications: Active Medications Acetaminophen (Tylenol -) 325 mg PO Q4H PRN PRN Reason: PAIN LEVEL 1-5 Stop: 07/30/18 10:39 Last Admin: 07/27/18 18:56 Dose: 325 mg Alprazolam (Xanax -) 0.25 mg PO Q8H PRN PRN Reason: ANXIETY Atorvastatin Calcium (Lipitor -) 40 mg PO HS [facility] Last Admin: 07/27/18 22:22 Dose: 40 mg Carbidopa/Levodopa (Sinemet 25/100 -) 1 each PO TID [facility] Last Admin: 07/28/18 07:05 Dose: Not Given Diltiazem HCl (Cardizem Cd -) 120 mg PO BID [facility] Last Admin: 07/28/18 12:35 Dose: Not Given Fentanyl (Sublimaze Injection -) 25 mcg IVPUSH [id number] PRN PRN Reason: PAIN-PACU ORDER X 4 DOSES ONLY Furosemide (Lasix -) 40 mg PO BID@0600,1400 [facility] Last Admin: 07/28/18 07:05 Dose: Not Given Gabapentin (Neurontin -) 300 mg PO TID [facility] Last Admin: 07/28/18 07:05 Dose: Not Given Hydralazine HCl (Apresoline -) 50 mg PO TID [facility] Last Admin: 07/28/18 07:06 Dose: 50 mg Vancomycin HCl (Vancomycin (Pre-Docked)) 1,000 mg in 250 mls @ 166.667 mls/hr IVPB Q12H [facility]; Protocol Last Admin: 07/28/18 03:14 Dose: 166.667 mls/hr Cefepime HCl 2 gm/ Dextrose 100 mls @ 200 mls/hr IVPB Q8H-IV [facility]; Protocol Last Admin: 07/28/18 01:38 Dose: 200 mls/hr Isosorbide Mononitrate (Imdur -) 30 mg PO DAILY [facility] Last Admin: 07/28/18 12:59 Dose: 30 mg Lidocaine (Lidoderm Patch -) 1 patch TP DAILY [facility] Last Admin: 07/28/18 12:58 Dose: 1 patch Miscellaneous (Lidoderm Patch Removal) 1 each DAILY@2200 [facility] Last Admin: 07/27/18 22:22 Dose: Not Given Morphine Sulfate (Morphine Injection -) 2 mg IVPUSH Q6H PRN PRN Reason: PAIN LEVEL 6-10 Last Admin: 07/27/18 16:05 Dose: 2 mg Oxycodone HCl (Roxicodone -) 5 mg PO Q4H PRN PRN Reason: PAIN LEVEL 1-5 Last Admin: 07/27/18 18:55 Dose: 5 mg Pramipexole Dihydrochloride (Mirapex -) 0.25 mg PO BID [facility] Last Admin: 07/28/18 13:09 Dose: 0.25 mg Prednisone (Deltasone -) 2.5 mg PO DAILY [facility] Last Admin: 07/28/18 12:36 Dose: Not Given Prednisone (Deltasone -) 5 mg PO DAILY [facility] Last Admin: 07/28/18 12:59 Dose: 5 mg Rivastigmine Tartrate (Exelon (Nf) -) 3 mg PO BID [facility] Last Admin: 07/28/18 12:59 Dose: 3 mg Timolol Maleate (Timoptic 0.5%) 1 drop OU BID [facility] Last Admin: 07/28/18 13:07 Dose: Not Given - Objective Vital Signs: Vital Signs Temperature 98.0 F 07/28/18 10:15 Pulse Rate 60 07/28/18 10:15 Respiratory Rate 16 07/28/18 10:15 Blood Pressure 121/50 L 07/28/18 10:15 O2 Sat by Pulse Oximetry (%) 100 07/28/18 10:00 Constitutional: Yes: Well Nourished Eyes: Yes: Conjunctiva Clear HENT: Yes: Other (L ear canal packed + pre-auricular tenderness) Cardiovascular: Yes: Regular Rate and Rhythm, S1, S2 Respiratory: Yes: CTA Bilaterally Gastrointestinal: Yes: Normal Bowel Sounds, Soft. No: Tenderness Edema: Yes Edema: LLE: 2+, RLE: 2+ Labs: CBC, BMP 07/26/18 21:40 07/28/18 07:10 Assessment/Plan L otomastoiditis S/P L myringotomy Multiple antibiotic allergies BC pending No ear c/s sent Continue vancomycin/ cefepime
--- NOTE | 2018-07-28 16:59 | PN ---
Progress Note (short form) - Note Progress Note: ENT s/p let myringotomy with ventilation tube this morning minimal purulent fluid from middle ear left TM severelly thickened, poor landmarks left ear pain slightly better, but still present Impression: severe left otomastoiditis with some bony erosion on CT (early coalescence) persistent pain after myringotomy with tube prior acute otitis media with facial nerve paralysis years ago (FN recovered) Recommend: transfer to [facility] bed to bed transfer ENT consultation for possible surgical intervention (?mastoidectomy) get copy of CT scan and other imaging studies on disc to bring with patient upon transfer discussed with family (daughter in law translating) also discussed with Dr. Alicia and Dr. Abdi who understand and agree Martínez Espinoza MD FACS
--- NOTE | 2018-07-28 17:43 | PN ---
Progress Note (short form) - Note Progress Note: covering note Current Medications Acetaminophen (Tylenol -) 325 mg PO Q4H PRN PRN Reason: PAIN LEVEL 1-5 Stop: 07/30/18 10:39 Last Admin: 07/27/18 18:56 Dose: 325 mg Alprazolam (Xanax -) 0.25 mg PO Q8H PRN PRN Reason: ANXIETY Atorvastatin Calcium (Lipitor -) 40 mg PO HS [facility] Last Admin: 07/27/18 22:22 Dose: 40 mg Carbidopa/Levodopa (Sinemet 25/100 -) 1 each PO TID [facility] Last Admin: 07/28/18 15:41 Dose: 1 each Diltiazem HCl (Cardizem Cd -) 120 mg PO BID [facility] Last Admin: 07/28/18 12:35 Dose: Not Given Fentanyl (Sublimaze Injection -) 25 mcg IVPUSH [id number] PRN PRN Reason: PAIN-PACU ORDER X 4 DOSES ONLY Furosemide (Lasix -) 40 mg PO BID@0600,1400 [facility] Last Admin: 07/28/18 15:41 Dose: 40 mg Gabapentin (Neurontin -) 300 mg PO TID [facility] Last Admin: 07/28/18 15:41 Dose: 300 mg Hydralazine HCl (Apresoline -) 50 mg PO TID [facility] Last Admin: 07/28/18 15:41 Dose: 50 mg Vancomycin HCl (Vancomycin (Pre-Docked)) 1,000 mg in 250 mls @ 166.667 mls/hr IVPB Q12H [facility]; Protocol Last Admin: 07/28/18 15:42 Dose: 166.667 mls/hr Cefepime HCl 2 gm/ Dextrose 100 mls @ 200 mls/hr IVPB Q8H-IV [facility]; Protocol Last Admin: 07/28/18 17:03 Dose: 200 mls/hr Isosorbide Mononitrate (Imdur -) 30 mg PO DAILY [facility] Last Admin: 07/28/18 12:59 Dose: 30 mg Lidocaine (Lidoderm Patch -) 1 patch TP DAILY [facility] Last Admin: 07/28/18 12:58 Dose: 1 patch Miscellaneous (Lidoderm Patch Removal) 1 each MC DAILY@2200 [facility] Last Admin: 07/27/18 22:22 Dose: Not Given Morphine Sulfate (Morphine Injection -) 2 mg IVPUSH Q6H PRN PRN Reason: PAIN LEVEL 6-10 Last Admin: 07/27/18 16:05 Dose: 2 mg Oxycodone HCl (Roxicodone -) 5 mg PO Q4H PRN PRN Reason: PAIN LEVEL 1-5 Last Admin: 07/27/18 18:55 Dose: 5 mg Pramipexole Dihydrochloride (Mirapex -) 0.25 mg PO BID [facility] Last Admin: 07/28/18 13:09 Dose: 0.25 mg Prednisone (Deltasone -) 2.5 mg PO DAILY [facility] Last Admin: 07/28/18 12:36 Dose: Not Given Prednisone (Deltasone -) 5 mg PO DAILY [facility] Last Admin: 07/28/18 12:59 Dose: 5 mg Rivastigmine Tartrate (Exelon (Nf) -) 3 mg PO BID [facility] Last Admin: 07/28/18 12:59 Dose: 3 mg Timolol Maleate (Timoptic 0.5%) 1 drop OU BID [facility] Last Admin: 07/28/18 13:07 Dose: Not Given Laboratory Results - last 24 hr 07/28/18 07/28/18 07/28/18 07:10 07:10 07:10 ESR 14 Sodium 138 Potassium 3.9 Chloride 104 Carbon Dioxide 26 Anion Gap 8 BUN 18 Creatinine 1.1 Creat Clearance w eGFR > 60 Random Glucose 72 L Calcium 8.3 L Total Bilirubin 0.9 AST 21 ALT 11 L Alkaline Phosphatase 107 C-Reactive Protein 2.6 H Total Protein 5.4 L Albumin 3.0 L Triglycerides 102 Cholesterol 124 Total LDL Cholesterol 81 HDL Cholesterol 43 TSH 2.65 D Vital Signs Temperature 98.3 F 07/28/18 17:01 Pulse Rate 61 07/28/18 17:01 Respiratory Rate 20 07/28/18 17:01 Blood Pressure 148/62 07/28/18 17:01 O2 Sat by Pulse Oximetry (%) 100 07/28/18 10:00 CC: pain `````````````````` skin--hyperemic Rt tibial dermis head --NC face--nno edema heart--RR lungs--BS a bit distant, unlabored abd--obese, NT ext--2+ edema of the LE's; no ischemic changes neuro--alert, quiet; no tremors; moves all Extremities `````````````````````````````````````````````````````` CXR---NAP EKG--NSr; no acute ST elevations `````````````````````````````````````` Summ > Otomastoiditis--s/p myringotomy with some ppurulent discharge; tube placed; however, it is felt by ENT that this (with IV Abs ) may not be sufficient, given the extensiveness of this condition; therefore the plan is transfer to ENT unit of [facility] > HTN--with ASHD; seems stable at ths time > PD--back on his PD meds; have asked for Neuro consult for reveiw of his meds; and adjustment if needed. > Polymyalgia Rheumatica--on low dose Prednisone ~~~~~~~~~~~~~~~~~~~~~~~~~~~~~~~~ Dr Abdi Problem List - Problems (1) Mastoiditis Code(s): H70.90 - UNSPECIFIED MASTOIDITIS, UNSPECIFIED EAR Qualifiers: Laterality: right Qualified Code(s): H70.91 - Unspecified mastoiditis, right ear (2) Hypertension with heart disease Code(s): I11.9 - HYPERTENSIVE HEART DISEASE WITHOUT HEART FAILURE (3) Polymyalgia rheumatica Code(s): M35.3 - POLYMYALGIA RHEUMATICA (4) Parkinson disease Code(s): G20 - PARKINSON'S DISEASE (5) Chronic bronchitis Code(s): J42 - UNSPECIFIED CHRONIC BRONCHITIS Qualifiers: Chronic bronchitis type: unspecified Qualified Code(s): J42 - Unspecified chronic bronchitis (6) Lipidemia Code(s): E78.5 - HYPERLIPIDEMIA, UNSPECIFIED Qualifiers: Hyperlipidemia type: unspecified Qualified Code(s): E78.5 - Hyperlipidemia , unspecified (7) Osteoarthritis Code(s): M19.90 - UNSPECIFIED OSTEOARTHRITIS, UNSPECIFIED SITE Qualifiers: Osteoarthritis location: multiple joints Osteoarthritis type: primary Qualified Code(s): M15.0 - Primary generalized (osteo)arthritis (8) Chronic pain Code(s): G89.29 - OTHER CHRONIC PAIN Qualifiers: Chronic pain type: chronic pain syndrome Qualified Code(s): G89.4 - Chronic pain syndrome (9) Anxiety Code(s): F41.9 - ANXIETY DISORDER, UNSPECIFIED (10) Glaucoma Code(s): H40.9 - UNSPECIFIED GLAUCOMA Qualifiers: Glaucoma type: unspecified Laterality: bilateral Qualified Code(s): H40.9 - Unspecified glaucoma (11) Chronic GERD Code(s): K21.9 - GASTRO-ESOPHAGEAL REFLUX DISEASE WITHOUT ESOPHAGITIS (12) Allergy to anti-infective agent Code(s): Z88.3 - ALLERGY STATUS TO OTHER ANTI-INFECTIVE AGENTS STATUS
--- NOTE | 2018-07-28 18:24 | CONSULT ---
Consult - text type - Consultation Consultation Note: NEUROLOGY CONSULTATION is greatly appreciated: This 89 yo RH man with h/o HTN COPD, ASHD and colonic cancer. Well known to me with Parkinson's disease, dementia, RLS, CTS and CVA (Right caudate nucleus lacunar infarct). Maintained on: Aspirin 81; Atorvastatin; SYMBICORT ; Diltiazem; Furosemide; Gabapentin 300 mg PO HS; Imdur; Metoprolol; Pantoprazole; hydrALAZINE; predniSONE. His neurological meds are Sinemet CR 50/200 TID @ 7, 12, and 5; donepezil 10 mg q AM and Pramipexole 0.5 mg PO qHS PMH of left mastoiditis approx 6 years ago treated with prolonged antibiotics. Now admitted for recurrent mastoiditis on the left. EXAM: Left carotid bruit Mild-mod OMS Few beat of nystagmus on left gaze (labyrintine?) No tremor. Mild cogwheel rigidity Brisk reflexes except AJ's. Mild left circumduction IMP: 1. Mod OMS 2. Parkinsonism/ Parkinson's disease 3. CTS 4. S/P right BG lacunar infarct with mild residual left hemiparesis. SUGGEST: Continue donepezil 10 mg q AM Continue Sinemet CR 50/200 TID @ 7, 12, and 5 Continue Pramipexole 0.5 mg PO q HS. Thank you very much, Syed Hayward MD
--- NOTE | 2018-07-28 19:04 | PN ---
Progress Note (short form) - Note Progress Note: NEUROLOGY CORRECTION: Please disregard the submitted consultation. It is for another patient on the floor, (Mr. Sky Fox) who is also a long- term patient of mine and is admitted to the same floor today!. Mr. Claire is an 83 yo RH man whose Neurological Problems include: Parkinson's disease OMS Polymyalgia Rheumatica (PMR). He has no h/o colonic cancer or CVA. He does have a history of antecedent Left mastoiditis 6 years ago. His exam is Non-focal with minimal cogwheeling and mod OMS. His gait is shuffling but stable. The correct neuro meds are: Sinemet CR 25/100 TID @ 7, 12 and 5 Pramipexole 0.25 mg BID @ 7, 5 and rivastigmine 3 mg BID @ 7 and 5 The low-dose prednisone is for the PMR Please excuse this error and any confusion it may have caused. The medication orders have been corrected by me. The low-dose prednisone could be discontinued if desired by ID if it is interfering with treatment of the chronic infection. Please transfer the appropriate medication orders with the patient upon transfer. Thank you very much, Syed Hayward MD
[2018-07-28] MEDS ORDERED: PRAMIPEXOLE DIHYDROCHLORIDE 0.5 MG TABLET PO SCH (22:00)
[2018-07-28] MEDS: ATORVASTATIN CA 40 MG TABLET (FP) PO SCH (23:08)
[2018-07-28] MEDS: LIDOCAINE PATCH REMOVAL MC SCH (23:14)
[2018-07-29] MEDS: CEFEPIME 2 GM in DEXTROSE 5%-WATER 100 ML IVPB SCH ×3 (01:48→18:23)
[2018-07-29] MEDS: VANCOMYCIN 1 GRAM (PRE-DOCKED) 1,000 MG/250 ML BAG IVPB SCH ×2 (03:47→16:28)
[2018-07-29] MEDS: hydrALAZINE HCL 50 MG TABLET (FP) PO SCH ×3 (07:14→22:18)
[2018-07-29] MEDS: FUROSEMIDE 40 MG TABLET (FP) PO SCH ×2 (07:15→13:11)
[2018-07-29] MEDS: RIVASTIGMINE TARTRATE 1.5 MG CAPSULE PO SCH ×2 (07:15→16:30)
[2018-07-29] MEDS: PRAMIPEXOLE DIHYDROCHLORIDE 0.25 MG TABLET PO SCH ×2 (07:17→16:31)
[2018-07-29] MEDS: GABAPENTIN 300 MG CAPSULE (FP) PO SCH ×3 (07:17→22:18)
[2018-07-29 08:11] LABS: ANION GAP 7 MMOL/L (8-16); BLOOD UREA NITROGEN 18 mg/dL (7-18); CALCIUM 8.2 mg/dL (8.5-10.1); CHLORIDE 106 mmol/L (98-107); CO2 27 mmol/L (21-32); CREATININE 1.2 mg/dL (0.55-1.3); GLUCOSE,RANDOM 77 mg/dL (74-106); POTASSIUM 3.8 mmol/L (3.5-5.1); SODIUM 140 mmol/L (136-145)
--- NOTE | 2018-07-29 08:40 | OP ---
DATE OF OPERATION: 07/28/2018 PREOPERATIVE DIAGNOSIS: Left otomastoiditis, left otitis externa. POSTOPERATIVE DIAGNOSIS: Left otomastoiditis, left otitis externa. PROCEDURE: Left myringotomy with insertion of ventilation tubes. SURGEON: Thuy Espinoza MD ANESTHESIOLOGIST: Jeff Stubbs CRNA ANESTHESIA: Fractional. INDICATIONS: This 83-year-old male has had persistent ear pain with otitis externa and media which has failed to improve with appropriate medical therapy. He was brought to the emergency department where IV antibiotics and analgesia was instituted. He had a CT scan of the temporal bones indicating left otomastoiditis with some early coalescence. Myringotomy with ventilation tube is performed in order ventilate the middle ear and begin drainage of the middle airspace. FINDINGS: Otitis externa with moderate canal wall edema. Tympanic membrane severely thickened and slightly bulging with loss of landmark. Scant purulent effusion from middle ear. DESCRIPTION OF PROCEDURE: Patient was brought to the operating room and placed on the operating table in supine position. Fractional anesthesia was induced to a satisfactory level. He was prepped and draped in the usual fashion for surgery. The operating microscope was used with ear speculum. There was no wax. There was [id number] canal edema. Medially the tympanic membrane was very thickened and somewhat bulging. There were poor landmarks. By palpation, it was identified and the inferior portion identified. An inferior myringotomy was created. The eardrum was severely thickened. Minimal purulence was aspirated. A 7-mm fluoroplastic ventilation tube was placed. Patient tolerated the procedure well. He was then awakened from anesthesia and transferred to the PACU in stable condition. Estimated blood loss was minimal. He received crystalloids during the procedure. There are no specimens. The 7-mm fluoroplastic tube was in place at the conclusion of the case. There were no complications. THUY ESPINOZA M.D. MELVIN/[id number]
[2018-07-29] MEDS: predniSONE 5 MG TABLET (UD) PO SCH (09:01)
[2018-07-29] MEDS: LIDOCAINE 5% TOPICAL PATCH TP SCH (09:01)
[2018-07-29] MEDS: ISOSORBIDE MONONITRATE 30 MG TAB.SR.24H (FP) PO SCH (09:01)
[2018-07-29] MEDS: TIMOLOL 0.5% OPHTHALMIC SOL 5 ML BOTTLE OU SCH ×2 (09:46→22:19)
[2018-07-29] MEDS ORDERED: DONEPEZIL HCL 10 MG TABLET (FP) PO SCH (10:00)
[2018-07-29 10:02] LABS: HEMATOCRIT 30.5 % (35.4-49); HEMOGLOBIN 10.7 GM/dL (11.7-16.9); MCH 31.4 pg (25.7-33.7); MCHC 35.1 g/dl (32.0-35.9); MEAN CELL VOLUME 89.5 fl (80-96); MEAN PLT VOLUME 8.4 fl (7.5-11.1); PLATELET COUNT 186 K/MM3 (134-434); RDW 13.7 % (11.9-15.9); WHITE BLOOD COUNT 8.4 K/mm3 (4.0-10.0)
--- NOTE | 2018-07-29 10:04 | PN ---
Progress Note, Physician History of Present Illness: Patient is a 83 year old male with a significant past medical history of Peripheral Neuropathy, Parkinson's, CAD, CHF, HTN, Hyperlipidemia, Asthma, GERD , Hiatal Hernia, Anxiety, Chronic low back pain, Osteoarthritis, polymyalgia rheumatica, who presents to the ED with complaints of left ear pain that began x6 weeks ago. As per patient's daughter, patient began to experiencing left ear discomfort. She reports the left ear pain began to develop shortly after patient went to ENT to have wax removed. As per patient's daughter, patient has seen ENT x4 times since development of pain, and has been prescribed antibiotics with no relief, as well as steroids for pain with slight relief, but states it returned shortly after finishing steroids. She reports patient has been taking advil and tylenol for pain with no relief. Patient rhett reports patient went to ENT this afternoon who advised he come into the ED for further evaluation due to symptoms not subsiding. - Current Medication List Current Medications: Active Medications Acetaminophen (Tylenol -) 325 mg PO Q4H PRN PRN Reason: PAIN LEVEL 1-5 Stop: 07/30/18 10:39 Last Admin: 07/27/18 18:56 Dose: 325 mg Alprazolam (Xanax -) 0.25 mg PO Q8H PRN PRN Reason: ANXIETY Atorvastatin Calcium (Lipitor -) 40 mg PO HS [facility] Last Admin: 07/28/18 23:08 Dose: 40 mg Carbidopa/Levodopa (Sinemet *Cr* 25/100 -) 1 combo PO TID@0700,1200,1700 [facility] Last Admin: 07/29/18 07:17 Dose: 1 combo Diltiazem HCl (Cardizem Cd -) 120 mg PO BID [facility] Last Admin: 07/29/18 09:01 Dose: 120 mg Furosemide (Lasix -) 40 mg PO BID@0600,1400 [facility] Last Admin: 07/29/18 07:15 Dose: 40 mg Gabapentin (Neurontin -) 300 mg PO TID [facility] Last Admin: 07/29/18 07:17 Dose: 300 mg Hydralazine HCl (Apresoline -) 50 mg PO TID [facility] Last Admin: 07/29/18 07:14 Dose: 50 mg Vancomycin HCl (Vancomycin (Pre-Docked)) 1,000 mg in 250 mls @ 166.667 mls/hr IVPB Q12H [facility]; Protocol Last Admin: 07/29/18 03:47 Dose: 166.667 mls/hr Cefepime HCl 2 gm/ Dextrose 100 mls @ 200 mls/hr IVPB Q8H-IV [facility]; Protocol Last Admin: 07/29/18 09:01 Dose: 200 mls/hr Isosorbide Mononitrate (Imdur -) 30 mg PO DAILY [facility] Last Admin: 07/29/18 09:01 Dose: 30 mg Lidocaine (Lidoderm Patch -) 1 patch TP DAILY [facility] Last Admin: 07/29/18 09:01 Dose: 1 patch Miscellaneous (Lidoderm Patch Removal) 1 each MC DAILY@2200 [facility] Last Admin: 07/28/18 23:14 Dose: 1 each Morphine Sulfate (Morphine Injection -) 2 mg IVPUSH Q6H PRN PRN Reason: PAIN LEVEL 6-10 Last Admin: 07/27/18 16:05 Dose: 2 mg Oxycodone HCl (Roxicodone -) 5 mg PO Q4H PRN PRN Reason: PAIN LEVEL 1-5 Last Admin: 07/27/18 18:55 Dose: 5 mg Pramipexole Dihydrochloride (Mirapex -) 0.25 mg PO BID@0700,1700 [facility] Last Admin: 07/29/18 07:17 Dose: 0.25 mg Prednisone (Deltasone -) 5 mg PO DAILY [facility] Last Admin: 07/29/18 09:01 Dose: 5 mg Rivastigmine Tartrate (Exelon (Nf) -) 3 mg PO BID@0700,1700 [facility] Last Admin: 07/29/18 07:15 Dose: 3 mg Timolol Maleate (Timoptic 0.5%) 1 drop OU BID [facility] Last Admin: 07/29/18 09:46 Dose: 1 drop - Objective Vital Signs: Vital Signs Temperature 99 F 07/29/18 06:00 Pulse Rate 61 07/29/18 06:00 Respiratory Rate 20 07/29/18 06:00 Blood Pressure 139/57 L 07/29/18 06:00 O2 Sat by Pulse Oximetry (%) 100 07/28/18 10:00 Eyes: Yes: WNL, Conjunctiva Clear, EOM Intact HENT: Yes: WNL, Atraumatic, Normocephalic Neck: Yes: WNL, Supple, Trachea Midline Cardiovascular: Yes: WNL, Regular Rate and Rhythm Respiratory: Yes: WNL, Regular, CTA Bilaterally Gastrointestinal: Yes: WNL, Normal Bowel Sounds Genitourinary: Yes: WNL Musculoskeletal: Yes: WNL Extremities: Yes: WNL Edema: No Integumentary: Yes: WNL ...Motor Strength: WNL Psychiatric: Yes: WNL Labs: CBC, BMP 07/29/18 07:00 07/29/18 07:00 Assessment/Plan - Problems (1) CAD (coronary artery disease) Assessment/Plan: Hx postive Stress MIBI in 201-->coronary angiogram (nonobstructive disease; no PCI was needed). On atorvastatin; normal lipid levels. F/u ECHO for LVEF, wall motion, valve status. Code(s): I25.10 - ATHSCL HEART DISEASE OF [place] CORONARY ARTERY W/O ANG PCTRS (2) Ear pain, left Code(s): H92.02 - OTALGIA, LEFT EAR (3) Hearing loss Code(s): H91.90 - UNSPECIFIED HEARING LOSS, UNSPECIFIED EAR Qualifiers: Hearing loss type: unspecified Laterality: left Qualified Code(s): H91.92 - Unspecified hearing loss, left ear (4) Hypertension with heart disease Code(s): I11.9 - HYPERTENSIVE HEART DISEASE WITHOUT HEART FAILURE (5) Hypertension Code(s): I10 - ESSENTIAL (PRIMARY) HYPERTENSION Qualifiers: Hypertension type: essential hypertension Qualified Code(s): I10 - Essential (primary) hypertension
--- NOTE | 2018-07-29 12:23 | PN ---
Progress Note (short form) - Note Progress Note: s/p myringotomy tube yesterday-no operative culture no ear pain Vital Signs Period Temp Pulse Resp BP Sys/Onofre Pulse Ox Last 24 Hr 98.1 F-99.2 F 56-68 18-20 99-154/54-69 cor-rrr lungs clear abd soft,nt ext no edema CBC, BMP 07/29/18 07:00 07/29/18 07:00 a/p otomastoiditis s/p myringotomy tube multiple antibiotic allergies vancomycin trough today continue vanco/cefepime
--- NOTE | 2018-07-29 14:53 | PN ---
Progress Note (short form) - Note Progress Note: ........................... covering note ......................... Current Medications Acetaminophen (Tylenol -) 325 mg PO Q4H PRN PRN Reason: PAIN LEVEL 1-5 Stop: 07/30/18 10:39 Last Admin: 07/27/18 18:56 Dose: 325 mg Alprazolam (Xanax -) 0.25 mg PO Q8H PRN PRN Reason: ANXIETY Atorvastatin Calcium (Lipitor -) 40 mg PO HS [facility] Last Admin: 07/28/18 23:08 Dose: 40 mg Carbidopa/Levodopa (Sinemet *Cr* 25/100 -) 1 combo PO TID@0700,1200,1700 [facility] Last Admin: 07/29/18 12:12 Dose: 1 combo Diltiazem HCl (Cardizem Cd -) 120 mg PO BID [facility] Last Admin: 07/29/18 09:01 Dose: 120 mg Furosemide (Lasix -) 40 mg PO BID@0600,1400 [facility] Last Admin: 07/29/18 13:11 Dose: 40 mg Gabapentin (Neurontin -) 300 mg PO TID [facility] Last Admin: 07/29/18 13:11 Dose: 300 mg Hydralazine HCl (Apresoline -) 50 mg PO TID [facility] Last Admin: 07/29/18 13:11 Dose: 50 mg Vancomycin HCl (Vancomycin (Pre-Docked)) 1,000 mg in 250 mls @ 166.667 mls/hr IVPB Q12H [facility]; Protocol Last Admin: 07/29/18 03:47 Dose: 166.667 mls/hr Cefepime HCl 2 gm/ Dextrose 100 mls @ 200 mls/hr IVPB Q8H-IV [facility]; Protocol Last Admin: 07/29/18 09:01 Dose: 200 mls/hr Isosorbide Mononitrate (Imdur -) 30 mg PO DAILY [facility] Last Admin: 07/29/18 09:01 Dose: 30 mg Lidocaine (Lidoderm Patch -) 1 patch TP DAILY [facility] Last Admin: 07/29/18 09:01 Dose: 1 patch Miscellaneous (Lidoderm Patch Removal) 1 each MC DAILY@2200 [facility] Last Admin: 07/28/18 23:14 Dose: 1 each Morphine Sulfate (Morphine Injection -) 2 mg IVPUSH Q6H PRN PRN Reason: PAIN LEVEL 6-10 Last Admin: 07/27/18 16:05 Dose: 2 mg Oxycodone HCl (Roxicodone -) 5 mg PO Q4H PRN PRN Reason: PAIN LEVEL 1-5 Last Admin: 07/27/18 18:55 Dose: 5 mg Pramipexole Dihydrochloride (Mirapex -) 0.25 mg PO BID@0700,1700 [facility] Last Admin: 07/29/18 07:17 Dose: 0.25 mg Prednisone (Deltasone -) 5 mg PO DAILY [facility] Last Admin: 07/29/18 09:01 Dose: 5 mg Rivastigmine Tartrate (Exelon (Nf) -) 3 mg PO BID@0700,1700 [facility] Last Admin: 07/29/18 07:15 Dose: 3 mg Timolol Maleate (Timoptic 0.5%) 1 drop OU BID [facility] Last Admin: 07/29/18 09:46 Dose: 1 drop Laboratory Results - last 24 hr 07/29/18 07/29/18 07:00 07:00 WBC 8.4 RBC 3.40 L Hgb 10.7 L Hct 30.5 L MCV 89.5 MCH 31.4 MCHC 35.1 RDW 13.7 Plt Count 186 D MPV 8.4 Sodium 140 Potassium 3.8 Chloride 106 Carbon Dioxide 27 Anion Gap 7 L BUN 18 Creatinine 1.2 Creat Clearance w eGFR 58.11 Random Glucose 77 Calcium 8.2 L Vital Signs Temperature 98.5 F 07/29/18 09:00 Pulse Rate 68 07/29/18 13:13 Respiratory Rate 20 07/29/18 09:00 Blood Pressure 134/64 07/29/18 13:13 O2 Sat by Pulse Oximetry (%) 100 07/28/18 10:00 CC: pain Lt ear `````````````````` skin--hyperemic Rt tibial dermis; no hives noted head --NC face--no edema; rash heart--RR lungs--BS a bit distant, unlabored abd--obese, NT ext--1+ edema of the LE's; no ischemic changes neuro--alert, quiet; no tremors; moves all Extremities `````````````````````````````````````````````````````` Summ > Otomastoiditis--s/p LT myringotomy with some purulent discharge; tube placed; however, it is felt by ENT that this (with IV Abs ) may not be sufficient, given the extensiveness of this condition as noted on CT scan; therefore the plan is transfer to ENT unit of [facility] for more specialized evaluation; Opiates for pain control > HTN--with ASHD; seems stable at ths time > PD--back on his PD meds; neuro consult noted. 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 ~~~~~~~~~~~~~~~~~~~~~~~~~~~~~~~~ Dr Abdi Problem List - Problems (1) Mastoiditis Code(s): H70.90 - UNSPECIFIED MASTOIDITIS, UNSPECIFIED EAR Qualifiers: Laterality: right Qualified Code(s): H70.91 - Unspecified mastoiditis, right ear (2) Hypertension with heart disease Code(s): I11.9 - HYPERTENSIVE HEART DISEASE WITHOUT HEART FAILURE (3) Polymyalgia rheumatica Code(s): M35.3 - POLYMYALGIA RHEUMATICA (4) Parkinson disease Code(s): G20 - PARKINSON'S DISEASE (5) Chronic bronchitis Code(s): J42 - UNSPECIFIED CHRONIC BRONCHITIS Qualifiers: Chronic bronchitis type: unspecified Qualified Code(s): J42 - Unspecified chronic bronchitis (6) Lipidemia Code(s): E78.5 - HYPERLIPIDEMIA, UNSPECIFIED Qualifiers: Hyperlipidemia type: unspecified Qualified Code(s): E78.5 - Hyperlipidemia , unspecified (7) Osteoarthritis Code(s): M19.90 - UNSPECIFIED OSTEOARTHRITIS, UNSPECIFIED SITE Qualifiers: Osteoarthritis location: multiple joints Osteoarthritis type: primary Qualified Code(s): M15.0 - Primary generalized (osteo)arthritis (8) Chronic pain Code(s): G89.29 - OTHER CHRONIC PAIN Qualifiers: Chronic pain type: chronic pain syndrome Qualified Code(s): G89.4 - Chronic pain syndrome (9) Anxiety Code(s): F41.9 - ANXIETY DISORDER, UNSPECIFIED (10) Glaucoma Code(s): H40.9 - UNSPECIFIED GLAUCOMA Qualifiers: Glaucoma type: unspecified Laterality: bilateral Qualified Code(s): H40.9 - Unspecified glaucoma (11) Chronic GERD Code(s): K21.9 - GASTRO-ESOPHAGEAL REFLUX DISEASE WITHOUT ESOPHAGITIS (12) Allergy to anti-infective agent Code(s): Z88.3 - ALLERGY STATUS TO OTHER ANTI-INFECTIVE AGENTS STATUS
[2018-07-29] MEDS ORDERED: PT OWN MED DRAWER 7, Y5N ONE ×2 (17:35→22:11)
[2018-07-29] MEDS: DOCUSATE SODIUM 100 MG CAPSULE (FP) PO SCH (22:18)
[2018-07-29] MEDS: ATORVASTATIN CA 40 MG TABLET (FP) PO SCH (22:18)
[2018-07-29] MEDS: LIDOCAINE PATCH REMOVAL MC SCH (22:19)
[2018-07-30] MEDS ORDERED: PT OWN MED DRAWER 7, Y5N ONE ×2 (01:22→06:51)
[2018-07-30] MEDS: CEFEPIME 2 GM in DEXTROSE 5%-WATER 100 ML IVPB SCH ×2 (01:34→09:24)
[2018-07-30] MEDS: VANCOMYCIN 1 GRAM (PRE-DOCKED) 1,000 MG/250 ML BAG IVPB SCH (04:24)
[2018-07-30] MEDS: hydrALAZINE HCL 50 MG TABLET (FP) PO SCH (07:00)
[2018-07-30] MEDS: FUROSEMIDE 40 MG TABLET (FP) PO SCH (07:00)
[2018-07-30] MEDS: GABAPENTIN 300 MG CAPSULE (FP) PO SCH (07:00)
[2018-07-30] MEDS: PRAMIPEXOLE DIHYDROCHLORIDE 0.25 MG TABLET PO SCH (07:01)
[2018-07-30] MEDS: RIVASTIGMINE TARTRATE 1.5 MG CAPSULE PO SCH (07:01)
[2018-07-30 07:59] VITALS: BP 131/55; PULSE 53; TEMP 98.2
[2018-07-30 08:29] LABS: HEMATOCRIT 32.3 % (35.4-49); HEMOGLOBIN 10.7 GM/dL (11.7-16.9); MCH 29.7 pg (25.7-33.7); MCHC 33.1 g/dl (32.0-35.9); MEAN CELL VOLUME 89.9 fl (80-96); PLATELET COUNT 173 K/MM3 (134-434); RBC 3.59 M/mm3 (4.00-5.60); RDW 13.9 % (11.9-15.9); WHITE BLOOD COUNT 8.9 K/mm3 (4.0-10.0)
[2018-07-30] MEDS: ISOSORBIDE MONONITRATE 30 MG TAB.SR.24H (FP) PO SCH (09:22)
[2018-07-30] MEDS: DOCUSATE SODIUM 100 MG CAPSULE (FP) PO SCH (09:22)
[2018-07-30] MEDS: predniSONE 5 MG TABLET (UD) PO SCH (09:23)
[2018-07-30] MEDS: LIDOCAINE 5% TOPICAL PATCH TP SCH (09:23)
[2018-07-30] MEDS: TIMOLOL 0.5% OPHTHALMIC SOL 5 ML BOTTLE OU SCH (09:23)
[2018-07-30] MEDS: oxyCODONE HCL 5 MG TABLET PO PRN (09:34)
[2018-07-30] MEDS: ACETAMINOPHEN 325 MG TABLET (FP) PO PRN (09:35)
--- NOTE | 2018-07-30 10:21 | PN ---
Progress Note, Physician History of Present Illness: Patient is a 83 year old male with a significant past medical history of Peripheral Neuropathy, Parkinson's, CAD, CHF, HTN, Hyperlipidemia, Asthma, GERD , Hiatal Hernia, Anxiety, Chronic low back pain, Osteoarthritis, polymyalgia rheumatica, who presents to the ED with complaints of left ear pain that began x6 weeks ago. As per patient's daughter, patient began to experiencing left ear discomfort. She reports the left ear pain began to develop shortly after patient went to ENT to have wax removed. As per patient's daughter, patient has seen ENT x4 times since development of pain, and has been prescribed antibiotics with no relief, as well as steroids for pain with slight relief, but states it returned shortly after finishing steroids. She reports patient has been taking advil and tylenol for pain with no relief. Patient rhett reports patient went to ENT this afternoon who advised he come into the ED for further evaluation due to symptoms not subsiding. - Current Medication List Current Medications: Active Medications Acetaminophen (Tylenol -) 325 mg PO Q4H PRN PRN Reason: PAIN LEVEL 1-5 Stop: 07/30/18 10:39 Last Admin: 07/30/18 09:35 Dose: 325 mg Alprazolam (Xanax -) 0.25 mg PO Q8H PRN PRN Reason: ANXIETY Atorvastatin Calcium (Lipitor -) 40 mg PO HS [facility] Last Admin: 07/29/18 22:18 Dose: 40 mg Carbidopa/Levodopa (Sinemet *Cr* 25/100 -) 1 combo PO TID@0700,1200,1700 [facility] Last Admin: 07/30/18 07:02 Dose: 1 combo Diltiazem HCl (Cardizem Cd -) 120 mg PO BID [facility] Last Admin: 07/30/18 09:22 Dose: 120 mg Docusate Sodium (Colace -) 100 mg PO BID [facility] Last Admin: 07/30/18 09:22 Dose: 100 mg Furosemide (Lasix -) 40 mg PO BID@0600,1400 [facility] Last Admin: 07/30/18 07:00 Dose: 40 mg Gabapentin (Neurontin -) 300 mg PO TID [facility] Last Admin: 07/30/18 07:00 Dose: 300 mg Hydralazine HCl (Apresoline -) 50 mg PO TID [facility] Last Admin: 07/30/18 07:00 Dose: 50 mg Vancomycin HCl (Vancomycin (Pre-Docked)) 1,000 mg in 250 mls @ 166.667 mls/hr IVPB Q12H [facility]; Protocol Last Admin: 07/30/18 04:24 Dose: 166.667 mls/hr Cefepime HCl 2 gm/ Dextrose 100 mls @ 200 mls/hr IVPB Q8H-IV [facility]; Protocol Last Admin: 07/30/18 09:24 Dose: 200 mls/hr Isosorbide Mononitrate (Imdur -) 30 mg PO DAILY [facility] Last Admin: 07/30/18 09:22 Dose: 30 mg Lidocaine (Lidoderm Patch -) 1 patch TP DAILY [facility] Last Admin: 07/30/18 09:23 Dose: 1 patch Miscellaneous (Lidoderm Patch Removal) 1 each MC DAILY@2200 [facility] Last Admin: 07/29/18 22:19 Dose: 1 each Morphine Sulfate (Morphine Injection -) 2 mg IVPUSH Q6H PRN PRN Reason: PAIN LEVEL 6-10 Last Admin: 07/27/18 16:05 Dose: 2 mg Oxycodone HCl (Roxicodone -) 5 mg PO Q4H PRN PRN Reason: PAIN LEVEL 1-5 Last Admin: 07/30/18 09:34 Dose: 5 mg Pramipexole Dihydrochloride (Mirapex -) 0.25 mg PO BID@0700,1700 [facility] Last Admin: 07/30/18 07:01 Dose: 0.25 mg Prednisone (Deltasone -) 5 mg PO DAILY [facility] Last Admin: 07/30/18 09:23 Dose: 5 mg Rivastigmine Tartrate (Exelon (Nf) -) 3 mg PO BID@0700,1700 [facility] Last Admin: 07/30/18 07:01 Dose: 3 mg Timolol Maleate (Timoptic 0.5%) 1 drop OU BID [facility] Last Admin: 07/30/18 09:23 Dose: 1 drop - Objective Vital Signs: Vital Signs Temperature 98.2 F 07/30/18 06:00 Pulse Rate 53 L 07/30/18 06:00 Respiratory Rate 18 07/30/18 06:00 Blood Pressure 131/55 L 07/30/18 06:00 O2 Sat by Pulse Oximetry (%) 100 07/28/18 10:00 Eyes: Yes: WNL, Conjunctiva Clear, EOM Intact HENT: Yes: WNL, Atraumatic, Normocephalic Neck: Yes: WNL, Supple, Trachea Midline Cardiovascular: Yes: WNL, Regular Rate and Rhythm Respiratory: Yes: WNL, Regular, CTA Bilaterally Gastrointestinal: Yes: WNL, Normal Bowel Sounds Genitourinary: Yes: WNL Musculoskeletal: Yes: WNL Extremities: Yes: WNL Edema: No Edema: LLE: 1+, RLE: 1+ Integumentary: Yes: WNL Neurological: Yes: WNL, Alert, Oriented ...Motor Strength: WNL Psychiatric: Yes: WNL Labs: CBC, BMP 07/30/18 07:00 07/29/18 07:00 Assessment/Plan - Problems (1) CAD (coronary artery disease) Assessment/Plan: Hx postive Stress MIBI in 2010-->coronary angiogram (nonobstructive disease; no PCI was needed). On atorvastatin; normal lipid levels. F/u ECHO for LVEF, wall motion, valve status. Code(s): I25.10 - ATHSCL HEART DISEASE OF [place] CORONARY ARTERY W/O ANG PCTRS (2) Ear pain, left Code(s): H92.02 - OTALGIA, LEFT EAR (3) Hearing loss Code(s): H91.90 - UNSPECIFIED HEARING LOSS, UNSPECIFIED EAR Qualifiers: Hearing loss type: unspecified Laterality: left Qualified Code(s): H91.92 - Unspecified hearing loss, left ear (4) Hypertension with heart disease Code(s): I11.9 - HYPERTENSIVE HEART DISEASE WITHOUT HEART FAILURE (5) Hypertension Code(s): I10 - ESSENTIAL (PRIMARY) HYPERTENSION Qualifiers: Hypertension type: essential hypertension Qualified Code(s): I10 - Essential (primary) hypertension
== END 2018-07-30 13:16 | disposition short-term general hospital (02) | DRG 153 ==
LOC: JER 17:11 → JERBED 07-27 01:10 → UNDOADMIN 07-27 01:18 → JERBED 07-27 01:18 → J8W 07-27 23:45
PROVIDERS: ADMIT Internal Medicine Hematology & Oncology; ATTEND Internal Medicine Hematology & Oncology
PROC: 099670Z Drainage of Left Middle Ear with Drainage Device, Via Natural or Artificial Opening (ICD-10-PCS; principal; 2018-07-28 08:30)
DX: H70.092 Acute mastoiditis with other complications, left ear (principal); G20 Parkinson's disease; M35.3 Polymyalgia rheumatica; I25.10 Atherosclerotic heart disease of native coronary artery without angina pectoris; H91.90 Unspecified hearing loss, unspecified ear; E78.5 Hyperlipidemia, unspecified; K21.9 Gastro-esophageal reflux disease without esophagitis; I11.9 Hypertensive heart disease without heart failure; F03.90 Unspecified dementia, unspecified severity, without behavioral disturbance, psychotic disturbance, mood disturbance, and anxiety
CPT/HCPCS: 36415; 70481-TC; 71045-TC-FY; 80048; 80053; 80061; 83721; 84443; 85027; 85651; 86140; 87040; 93005; 93010; 93306-TC; 94760; 99284-25; G0480

== ENCOUNTER 2021-02-17 16:21 | Inpatient (IN) | payer OTHER ==
[2021-02-17 17:14] LABS: BASO % 0.2 % (0-2.0); EOS % 2.5 % (0-4.5); HEMATOCRIT 27.9 % (35.4-49); HEMOGLOBIN 9.5 GM/dL (11.7-16.9); LYMPH % 14.3 % (8-40); MCH 31.6 pg (25.7-33.7); MEAN CELL VOLUME 92.9 fl (80-96); MEAN PLT VOLUME 7.9 fl (7.5-11.1); MONO % 10.7 % (3.8-10.2); NEUT % 72.3 % (42.8-82.8); PLATELET COUNT 254 10^3/uL (134-434); RBC 3.01 M/mm3 (4.00-5.60); RDW 13.8 % (11.9-15.9); WHITE BLOOD COUNT 8.8 K/mm3 (4.0-10.0)
[2021-02-17 17:20] LABS: INR 0.93 (0.83-1.09); PROTHROMBIN TIME (PATIENT) 11.3 SEC (9.7-13.0)
[2021-02-17] MEDS ORDERED: CALCIUM GLUCONATE 10% - 1,000 MG/10 ML VIAL IVPB ONE (17:35)
[2021-02-17 17:37] LABS: ALBUMIN 3.9 g/dl (3.4-5.0); BLOOD UREA NITROGEN 55.2 mg/dL (7-18); CALCIUM 8.8 mg/dL (8.5-10.1)
[2021-02-17 17:38] LABS: MAGNESIUM 2.9 mg/dL (1.8-2.4)
[2021-02-17] MEDS ORDERED: GLUCAGON 1 MG KIT IVPUSH ONE (17:38)
[2021-02-17] MEDS ORDERED: ONDANSETRON 4 MG/2 ML VIAL IVPB ONE (17:40)
[2021-02-17 17:41] VITALS: BMI 28.3
[2021-02-17 17:42] LABS: TOT PROT 6.5 g/dl (6.4-8.2)
[2021-02-17 17:45] LABS: BILIRUBIN,TOTAL 0.5 mg/dL (0.2-1); N-TERMINAL BNP 1977.2 pg/ml (5-450)
[2021-02-17] MEDS ORDERED: CALCIUM GLUCONATE 10% - 1,000 MG/10 ML VIAL ONE (18:31)
[2021-02-17] MEDS ORDERED: ONDANSETRON 4 MG/2 ML VIAL ONE (18:31)
[2021-02-17] MEDS ORDERED: GLUCAGON 1 MG KIT ONE (18:31)
[2021-02-17] MEDS ORDERED: SODIUM CHLORIDE 1,000 ML IV SCH (19:15)
[2021-02-17] MEDS ORDERED: FUROSEMIDE 40 MG/4 ML INJECTABLE VIAL IVPUSH ONE (19:30)
[2021-02-17 21:34] LABS: PH,URINE 6.5 (5.0-8.0); URINE APPEARANCE CLEAR; URINE BILIRUBIN NEGATIVE (NEGATIVE); URINE COLOR YELLOW; URINE GLUCOSE (UA) NEGATIVE (NEGATIVE); URINE KETONE NEGATIVE (NEGATIVE); URINE LEUK ESTERASE NEGATIVE (NEGATIVE); URINE NITRITE NEGATIVE (NEGATIVE); URINE PROTEIN NEGATIVE (NEGATIVE); URINE UROBILINOGEN 0.2 mg/dL (0.2-1.0)
[2021-02-18] MEDS: PRAMIPEXOLE DIHYDROCHLORIDE 0.25 MG TABLET PO SCH ×4 (00:45→17:19)
[2021-02-18] MEDS ORDERED: GABAPENTIN 100 MG CAPSULE PO SCH (06:00)
[2021-02-18 08:34] LABS: HEMATOCRIT 29.8 % (35.4-49); HEMOGLOBIN 10.3 GM/dL (11.7-16.9); MCHC 34.5 g/dl (32.0-35.9); MEAN CELL VOLUME 92.7 fl (80-96); MEAN PLT VOLUME 7.8 fl (7.5-11.1); PLATELET COUNT 237 10^3/uL (134-434); RBC 3.21 M/mm3 (4.00-5.60); RDW 13.7 % (11.9-15.9); WHITE BLOOD COUNT 8.4 K/mm3 (4.0-10.0)
[2021-02-18 08:58] LABS: CALCIUM 9.2 mg/dL (8.5-10.1)
[2021-02-18 08:59] LABS: BLOOD UREA NITROGEN 54.6 mg/dL (7-18)
[2021-02-18 09:00] LABS: URIC ACID 6.1 mg/dL (2.6-7.2)
[2021-02-18 09:01] LABS: CREATININE 2.5 mg/dL (0.55-1.3)
[2021-02-18] MEDS: predniSONE 5 MG TABLET (UD) PO SCH (09:28)
[2021-02-18] MEDS: FAMOTIDINE 20 MG TABLET PO SCH (09:28)
[2021-02-18] MEDS: ALLOPURINOL 100 MG TABLET (FP) PO SCH (09:28)
[2021-02-18] MEDS: CARBIDOPA/LEVODOPA 25/250 TABLET (FP) PO SCH ×4 (09:28→21:12)
[2021-02-18] MEDS: ISOSORBIDE MONONITRATE 30 MG TAB.SR.24H (FP) PO SCH (09:28)
[2021-02-18] MEDS ORDERED: amLODIPine BESYLATE 2.5 MG TABLET (FP) PO ONE (11:59)
[2021-02-18] MEDS: hydrALAZINE HCL 25 MG TABLET (FP) PO SCH ×2 (13:14→21:12)
[2021-02-19] MEDS: PRAMIPEXOLE DIHYDROCHLORIDE 0.25 MG TABLET PO SCH ×5 (00:07→23:29)
[2021-02-19] MEDS: hydrALAZINE HCL 25 MG TABLET (FP) PO SCH ×3 (05:37→21:30)
[2021-02-19 07:25] LABS: HEMATOCRIT 28.2 % (35.4-49); HEMOGLOBIN 9.6 GM/dL (11.7-16.9); MCH 31.4 pg (25.7-33.7); MCHC 33.9 g/dl (32.0-35.9); MEAN CELL VOLUME 92.6 fl (80-96); MEAN PLT VOLUME 7.6 fl (7.5-11.1); PLATELET COUNT 228 10^3/uL (134-434); RBC 3.05 M/mm3 (4.00-5.60); WHITE BLOOD COUNT 8.4 K/mm3 (4.0-10.0)
[2021-02-19 07:47] LABS: CALCIUM 8.9 mg/dL (8.5-10.1); MAGNESIUM 2.7 mg/dL (1.8-2.4)
[2021-02-19 07:49] LABS: BLOOD UREA NITROGEN 43.6 mg/dL (7-18)
[2021-02-19] MEDS ORDERED: ENOXAPARIN NA (PORCINE) 40 MG/0.4 ML DISP.SYRIN SQ SCH (10:00)
[2021-02-19] MEDS ORDERED: FUROSEMIDE 40 MG/4 ML INJECTABLE VIAL IVPUSH SCH (10:00)
[2021-02-19] MEDS: predniSONE 5 MG TABLET (UD) PO SCH (10:26)
[2021-02-19] MEDS: ISOSORBIDE MONONITRATE 30 MG TAB.SR.24H (FP) PO SCH (10:26)
[2021-02-19] MEDS: ALLOPURINOL 100 MG TABLET (FP) PO SCH (10:26)
[2021-02-19] MEDS: ENOXAPARIN NA (PORCINE) 30 MG/0.3 ML DISP.SYRIN SQ SCH (10:26)
[2021-02-19] MEDS: FAMOTIDINE 20 MG TABLET PO SCH (10:26)
[2021-02-19] MEDS: CARBIDOPA/LEVODOPA 25/250 TABLET (FP) PO SCH ×4 (10:26→21:30)
[2021-02-19] MEDS ORDERED: amLODIPine BESYLATE 2.5 MG TABLET (FP) PO ONE (14:45)
[2021-02-20] MEDS: hydrALAZINE HCL 25 MG TABLET (FP) PO SCH ×2 (05:02→13:26)
[2021-02-20] MEDS: PRAMIPEXOLE DIHYDROCHLORIDE 0.25 MG TABLET PO SCH ×3 (05:02→17:05)
[2021-02-20 07:40] LABS: CALCIUM 8.8 mg/dL (8.5-10.1)
[2021-02-20 07:44] LABS: CREATININE 1.9 mg/dL (0.55-1.3); HEMATOCRIT 30.2 % (35.4-49); MCH 31.3 pg (25.7-33.7); MCHC 33.2 g/dl (32.0-35.9); MEAN CELL VOLUME 94.2 fl (80-96); MEAN PLT VOLUME 7.6 fl (7.5-11.1); PLATELET COUNT 241 10^3/uL (134-434); RBC 3.21 M/mm3 (4.00-5.60); RDW 13.9 % (11.9-15.9); WHITE BLOOD COUNT 8.1 K/mm3 (4.0-10.0)
[2021-02-20] MEDS: CARBIDOPA/LEVODOPA 25/250 TABLET (FP) PO SCH ×3 (09:53→17:04)
[2021-02-20] MEDS: ALLOPURINOL 100 MG TABLET (FP) PO SCH (09:53)
[2021-02-20] MEDS: ISOSORBIDE MONONITRATE 30 MG TAB.SR.24H (FP) PO SCH (09:53)
[2021-02-20] MEDS: predniSONE 5 MG TABLET (UD) PO SCH (09:53)
[2021-02-20] MEDS: FAMOTIDINE 20 MG TABLET PO SCH (09:53)
[2021-02-20] MEDS: ENOXAPARIN NA (PORCINE) 30 MG/0.3 ML DISP.SYRIN SQ SCH (09:53)
[2021-02-20] MEDS ORDERED: amLODIPine BESYLATE 5 MG TABLET (FP) PO ONE (10:52)
[2021-02-20] MEDS ORDERED: SULFAMETHOXAZOLE/TRIMETHOPRIM 400MG/80MG S.S. TABLET PO SCH (11:00)
[2021-02-20] MEDS ORDERED: PT OWN MED DRAWER 7, Y5N ONE (12:19)
[2021-02-20 15:51] VITALS: BP 127/62; PULSE 59; TEMP 97.5
== END 2021-02-20 17:29 | disposition home health service (06) | DRG 917 ==
LOC: JER 16:21 → JERBED 18:46 → J4W 02-18 04:05
PROVIDERS: ATTEND Internal Medicine
DX: T46.1X1A Poisoning by calcium-channel blockers, accidental (unintentional), initial encounter (principal); I50.23 Acute on chronic systolic (congestive) heart failure; N17.9 Acute kidney failure, unspecified; E87.1 Hypo-osmolality and hyponatremia; N39.0 Urinary tract infection, site not specified; I50.22 Chronic systolic (congestive) heart failure; I13.0 Hypertensive heart and chronic kidney disease with heart failure and stage 1 through stage 4 chronic kidney disease, or unspecified chronic kidney disease; I11.0 Hypertensive heart disease with heart failure; I25.10 Atherosclerotic heart disease of native coronary artery without angina pectoris; K21.9 Gastro-esophageal reflux disease without esophagitis; G20 Parkinson's disease; E78.5 Hyperlipidemia, unspecified; M35.3 Polymyalgia rheumatica; Z86.73 Personal history of transient ischemic attack (TIA), and cerebral infarction without residual deficits; F32.9 Major depressive disorder, single episode, unspecified; F02.80 Dementia in other diseases classified elsewhere, unspecified severity, without behavioral disturbance, psychotic disturbance, mood disturbance, and anxiety; D64.9 Anemia, unspecified; R00.1 Bradycardia, unspecified; Y92.89 Other specified places as the place of occurrence of the external cause; F03.90 Unspecified dementia, unspecified severity, without behavioral disturbance, psychotic disturbance, mood disturbance, and anxiety; N18.9 Chronic kidney disease, unspecified
CPT/HCPCS: 36415; 71045-TC-FY; 76775-TC; 80048; 80053; 81003; 82550; 82607; 82962; 83036; 83735; 83880; 84443; 84484; 84550; 85025; 85027; 85610; 87077; 87086; 87186; 93005; 93010; 93306-TC; 97116-GP; 97162-GP; 99291; C9803; U0003; U0005

== ENCOUNTER 2023-09-10 15:28 | Emergency (ER) | payer OTHER ==
[2023-09-10 15:49] VITALS: BP 145/72; PULSE 70; RESP 16; TEMP 97.8; BMI 27.4
[2023-09-10 16:45] LABS: HEMATOCRIT 28.9 % (35.4-49); HEMOGLOBIN 9.7 G/dL (11.7-16.9); MCH 30.3 pg (25.7-33.7); MCHC 33.4 g/dl (32.0-35.9); MEAN CELL VOLUME 90.6 fl (80-96); MEAN PLT VOLUME 7.3 fl (7.5-11.1); PLATELET COUNT 283.8 10^3/uL (134-434); RBC 3.19 10^6/uL (4.00-5.60); RDW 15.3 % (11.9-15.9); WHITE BLOOD COUNT 8.2 10^3/uL (4.0-10.8)
[2023-09-10 17:01] LABS: PLATELET ESTIMATE ADEQUATE
[2023-09-10 17:18] LABS: ALBUMIN 3.9 g/dl (3.4-5.0); BILIRUBIN,TOTAL 0.6 mg/dl (0.2-1); CALCIUM 9.2 mg/dl (8.5-10.1); CREATININE 1.5 mg/dl (0.6-1.3); POTASSIUM 3.8 mmol/L (3.5-5.1); TOT PROT 6.3 g/dl (6.4-8.2)
[2023-09-10] MEDS ORDERED: DALBAVANCIN HCL 1,500 MG in DEXTROSE 5%-WATER - 500 ML IVPB ONE (17:39)
[2023-09-10] MEDS ORDERED: DALBAVANCIN HCL 500 MG VIAL (RESTRICTED TO ID ONLY) IVPB ONE (17:56)
== END 2023-09-10 19:40 | disposition home or self-care (01) ==
LOC: FER 15:28
DX: L53.9 Erythematous condition, unspecified (principal); R22.43 Localized swelling, mass and lump, lower limb, bilateral; I87.2 Venous insufficiency (chronic) (peripheral); L03.115 Cellulitis of right lower limb
CPT/HCPCS: 36415; 80053; 85027; 99284-25; J0875

== ENCOUNTER 2023-12-31 17:22 | Inpatient (IN) | payer OTHER ==
[2023-12-31 18:49] LABS: HEMATOCRIT 27.9 % (35.4-49); MCH 29.4 pg (25.7-33.7); MCHC 32.2 g/dl (32.0-35.9); MEAN CELL VOLUME 91.3 fl (80-96); MEAN PLT VOLUME 8.3 fl (7.5-11.1); PLATELET COUNT 243.3 10^3/uL (134-434); RBC 3.06 10^6/uL (4.00-5.60); RDW 16.6 % (11.9-15.9); WHITE BLOOD COUNT 8.1 10^3/uL (4.0-10.8)
[2023-12-31 18:59] LABS: INR 1.04 (0.83-1.09); PROTHROMBIN TIME (PATIENT) 11.8 SEC (9.7-13.0)
[2023-12-31 19:09] LABS: ALBUMIN 4.1 g/dl (3.4-5.0); BILIRUBIN,TOTAL 0.7 mg/dl (0.2-1); CALCIUM 9.2 mg/dl (8.5-10.1); CREATININE 1.9 mg/dl (0.6-1.3); TOT PROT 7.1 g/dl (6.4-8.2)
[2023-12-31 19:14] LABS: POTASSIUM 5.5 mmol/L (3.5-5.1)
[2023-12-31 19:38] LABS: PLATELET ESTIMATE ADEQUATE
[2023-12-31 21:26] LABS: N-TERMINAL BNP 3229.3 pg/ml (5-450)
[2023-12-31 21:32] LABS: EPITHELIAL CELLS 0-5 /hpf
[2024-01-01] MEDS: FUROSEMIDE 40 MG/4 ML INJECTABLE VIAL IVPUSH ONE (08:04)
[2024-01-01 08:19] LABS: HEMATOCRIT 26.4 % (35.4-49); HEMOGLOBIN 8.3 G/dL (11.7-16.9); MCH 28.7 pg (25.7-33.7); MCHC 31.4 g/dl (32.0-35.9); MEAN CELL VOLUME 91.2 fl (80-96); MEAN PLT VOLUME 8.4 fl (7.5-11.1); PLATELET COUNT 231.3 10^3/uL (134-434); RBC 2.89 10^6/uL (4.00-5.60); RDW 16.1 % (11.9-15.9); WHITE BLOOD COUNT 7.1 10^3/uL (4.0-10.8)
[2024-01-01 08:56] LABS: ALBUMIN 3.8 g/dl (3.4-5.0); BILIRUBIN,TOTAL 0.7 mg/dl (0.2-1); CALCIUM 8.9 mg/dl (8.5-10.1); CREATININE 1.8 mg/dl (0.6-1.3); PHOSPHOROUS 4.8 (2.5-4.9); POTASSIUM 4.6 mmol/L (3.5-5.1); TOT PROT 6.4 g/dl (6.4-8.2)
[2024-01-01] MEDS: FAMOTIDINE 20 MG TABLET PO SCH (09:26)
[2024-01-01] MEDS: ISOSORBIDE MONONITRATE 30 MG TAB.SR.24H (FP) PO SCH (09:26)
[2024-01-01] MEDS: CARBIDOPA/LEVODOPA 25/250 TABLET (FP) PO SCH (09:27)
[2024-01-01] MEDS: ALLOPURINOL 100 MG TABLET (FP) PO SCH (09:27)
[2024-01-01] MEDS: amLODIPine BESYLATE 5 MG TABLET (FP) PO SCH (09:27)
[2024-01-01] MEDS: BUDESONIDE/FORMETEROL FUMARATE 160/4.5 mcg INHALER IH SCH (09:55)
[2024-01-01] MEDS ORDERED: CARBIDOPA/LEVODOPA 25/100 TABLET (FP) PO SCH ×2 (10:00)
[2024-01-01] MEDS: ALBUTEROL SO4 2.5/IPRATROPIUM 0.5 INH SOL 3 ML VIAL.NEB. NEB SCH (13:05)
[2024-01-01] MEDS: HEPARIN NA (PORCINE) 5,000 UNITS/ML 1ML VIAL SQ SCH (13:46)
[2024-01-01] MEDS: PRAMIPEXOLE DIHYDROCHLORIDE 0.25 MG TABLET PO SCH (21:01)
[2024-01-01] MEDS: LATANOPROST 0.005% OPHTH SOLN 2.5ML BOTTLE OU SCH (21:03)
[2024-01-01] MEDS: TIMOLOL 0.25% OPHTHALMIC SOL 5 ML BOTTLE OU SCH (21:03)
[2024-01-01] MEDS ORDERED: PRAMIPEXOLE DIHYDROCHLORIDE 0.25 MG TABLET PO SCH (22:00)
[2024-01-02] MEDS: guaiFENesin 200 MG/10 ML 10 ML UNIT-DOSE CUPS PO ONE (00:08)
[2024-01-02 08:24] LABS: HEMATOCRIT 26.8 % (35.4-49); HEMOGLOBIN 8.6 G/dL (11.7-16.9); MCH 29.1 pg (25.7-33.7); MCHC 31.9 g/dl (32.0-35.9); MEAN CELL VOLUME 91.1 fl (80-96); MEAN PLT VOLUME 8.4 fl (7.5-11.1); PLATELET COUNT 230.8 10^3/uL (134-434); RBC 2.94 10^6/uL (4.00-5.60)
[2024-01-02 08:42] LABS: ALBUMIN 3.8 g/dl (3.4-5.0); ALK PHOS 90 U/L (45-117); ANION GAP 8 mmol/L (4-13); BILIRUBIN,TOTAL 0.8 mg/dl (0.2-1); CALCIUM 8.7 mg/dl (8.5-10.1); CHLORIDE 103 mmol/L (98-107); CHOLESTEROL 143 mg/dL (50-200); CO2 26 mmol/L (21-32); CREATININE 1.8 mg/dl (0.6-1.3); GLUCOSE,RANDOM 83 mg/dl (74-106); HDL CHOLESTEROL 45 mg/dL (40-60); LDL CHOLESTEROL (ONLY DFH) 85 mg/dL (5-100); MAGNESIUM 2.9 mg/dL (1.8-2.4); PHOSPHOROUS 4.4 (2.5-4.9); POTASSIUM 3.9 mmol/L (3.5-5.1); SGOT/AST 17 U/L (15-37); SGPT/ALT 4 U/L (7-52); SODIUM 137 mmol/L (136-145); TOT PROT 6.4 g/dl (6.4-8.2)
[2024-01-02] MEDS: FUROSEMIDE 40 MG/4 ML INJECTABLE VIAL IVPUSH SCH (09:55)
[2024-01-02] MEDS: hydrALAZINE HCL 50 MG TABLET (FP) PO SCH (14:52)
[2024-01-03 08:14] LABS: HEMATOCRIT 26.8 % (35.4-49); HEMOGLOBIN 8.7 G/dL (11.7-16.9); MCH 29.6 pg (25.7-33.7); MCHC 32.6 g/dl (32.0-35.9); MEAN PLT VOLUME 8.3 fl (7.5-11.1); PLATELET COUNT 264.8 10^3/uL (134-434); RBC 2.95 10^6/uL (4.00-5.60); RDW 16.6 % (11.9-15.9); WHITE BLOOD COUNT 8.9 10^3/uL (4.0-10.8)
[2024-01-03 09:15] LABS: ANION GAP 10 mmol/L (4-13); CALCIUM 8.7 mg/dl (8.5-10.1); CHLORIDE 102 mmol/L (98-107); CO2 26 mmol/L (21-32); CREATININE 1.7 mg/dl (0.6-1.3); GLUCOSE,RANDOM 85 mg/dl (74-106); MAGNESIUM 2.6 mg/dL (1.8-2.4); PHOSPHOROUS 4.5 (2.5-4.9); POTASSIUM 3.5 mmol/L (3.5-5.1); SODIUM 138 mmol/L (136-145)
[2024-01-03] MEDS: LIDOCAINE 5% TOPICAL PATCH TP SCH (14:45)
[2024-01-03] MEDS: ACETAMINOPHEN 325 MG TABLET (FP) PO PRN (14:45)
[2024-01-03] MEDS: ATORVASTATIN CA 10 MG TABLET (FP) PO SCH (22:48)
[2024-01-04] MEDS: LIDOCAINE PATCH REMOVAL MC SCH (06:16)
[2024-01-04] MEDS ORDERED: methylPREDNISolone NA SUCC 125 MG/2 ML VIAL ONE (10:32)
[2024-01-04] MEDS: methylPREDNISolone NA SUCC 40 MG/1 ML VIAL IVPUSH ONE (12:00)
[2024-01-04 12:26] LABS: ARTERIAL BLD GAS O2 SATURATION 96.1 % (95-98); ARTERIAL BLOOD GAS BASE EXCESS 1.2 mmol/L (-2-2); ARTERIAL BLOOD GAS PO2 80.6 mmHg (80-100); ARTERIAL BLOOD GAS pH 7.416 (7.350-7.450)
[2024-01-04 12:30] LABS: ALLENS TEST POSITIVE
[2024-01-04] MEDS: MINERAL OIL/PET HY-PHL TOPICAL OINTMENT 454 GM JAR TP SCH (14:00)
[2024-01-04] MEDS: PRAMIPEXOLE DIHYDROCHLORIDE 1 MG TABLET PO SCH (22:36)
[2024-01-05] MEDS ORDERED: ALBUTEROL SO4 2.5/IPRATROPIUM 0.5 INH SOL 3 ML VIAL.NEB. NEB PRN (10:01)
[2024-01-05] MEDS: POLYETHYLENE GLYCOL (HEALTHYLAX) 3350 17 GM PACKET PO SCH (16:41)
[2024-01-05] MEDS: DOCUSATE NA 100 MG/10 ML UNIT-DOSE CUPS PO SCH (16:41)
[2024-01-05] MEDS: SENNOSIDES 8.8 MG/5 ML SYRUP PO SCH (16:42)
[2024-01-06] MEDS ORDERED: ATORVASTATIN CA 10 MG TABLET (FP) PO SCH (07:36)
[2024-01-06 08:21] LABS: POTASSIUM 3.6 mmol/L (3.5-5.1)
[2024-01-06 08:26] LABS: CALCIUM 8.1 mg/dL (8.5-10.1)
[2024-01-06 08:27] LABS: ALBUMIN 3.1 g/dl (3.4-5.0); BLOOD UREA NITROGEN 49.4 mg/dL (7-18)
[2024-01-06 08:30] LABS: CREATININE 1.7 mg/dL (0.55-1.3)
[2024-01-06 08:32] LABS: BILIRUBIN,TOTAL 0.6 mg/dL (0.2-1); TOT PROT 6.5 g/dl (6.4-8.2)
[2024-01-06] MEDS ORDERED: EMPAGLIFLOZIN (JARDIANCE) 10 MG TABLET PO SCH (10:00)
[2024-01-06] MEDS ORDERED: FLUTICASONE/UMECLIDIN/VILANTER(200-62.5-25 TRELEGY ELLIPTA) INAHLER IH SCH (10:30)
[2024-01-06] MEDS: ASPIRIN COATED 81 MG TABLET.EC PO SCH (10:55)
[2024-01-06 16:26] VITALS: BMI 31.1
[2024-01-06] MEDS: ATORVASTATIN CA 20 MG TABLET (FP) PO SCH (21:06)
[2024-01-07 08:21] LABS: POTASSIUM 3.8 mmol/L (3.5-5.1)
[2024-01-07 08:29] LABS: CREATININE 1.6 mg/dL (0.55-1.3)
[2024-01-09 07:18] LABS: BASO % 0.2 % (0-2.0); EOS % 0.7 % (0-4.5); HEMATOCRIT 26.1 % (35.4-49); HEMOGLOBIN 8.4 GM/dL (11.7-16.9); LYMPH % 9.3 % (8-40); MCH 28.6 pg (25.7-33.7); MCHC 32.1 g/dl (32.0-35.9); MONO % 10.9 % (3.8-10.2); NEUT % 78.9 % (42.8-82.8); PLATELET COUNT 278 10^3/uL (134-434); RBC 2.93 M/mm3 (4.00-5.60); RDW 15.2 % (11.9-15.9); WHITE BLOOD COUNT 14.8 K/mm3 (4.0-10.0)
[2024-01-09 07:54] LABS: ALBUMIN 2.8 g/dl (3.4-5.0); BILIRUBIN,TOTAL 1.4 mg/dL (0.2-1); BLOOD UREA NITROGEN 43.2 mg/dL (7-18); CALCIUM 8.2 mg/dL (8.5-10.1); CREATININE 1.4 mg/dL (0.55-1.3); POTASSIUM 5.5 mmol/L (3.5-5.1); TOT PROT 6.4 g/dl (6.4-8.2)
[2024-01-09] MEDS ORDERED: ALBUTEROL SO4 HFA INHALER IH PRN (08:32)
[2024-01-10 07:03] LABS: HEMATOCRIT 26.4 % (35.4-49); HEMOGLOBIN 8.6 GM/dL (11.7-16.9); MCH 28.8 pg (25.7-33.7); MCHC 32.6 g/dl (32.0-35.9); MEAN CELL VOLUME 88.3 fl (80-96); MEAN PLT VOLUME 7.6 fl (7.5-11.1); PLATELET COUNT 291 10^3/uL (134-434); RDW 15.7 % (11.9-15.9)
[2024-01-10 07:18] LABS: CHLORIDE 102 mmol/L (98-107); POTASSIUM 3.9 mmol/L (3.5-5.1); SODIUM 138 mmol/L (136-145)
[2024-01-10 07:23] LABS: CALCIUM 8.6 mg/dL (8.5-10.1)
[2024-01-10 07:24] LABS: ANION GAP 4 mmol/L (4-13); CO2 32 mmol/L (21-32); GLUCOSE,RANDOM 89 mg/dL (74-106)
[2024-01-10 07:26] LABS: SGPT/ALT < 6 U/L (13-61)
[2024-01-10 07:27] LABS: CREATININE 1.5 mg/dL (0.55-1.3); SGOT/AST 20 U/L (15-37)
[2024-01-10 07:28] LABS: BILIRUBIN,TOTAL 0.7 mg/dL (0.2-1); TOT PROT 6.3 g/dl (6.4-8.2)
[2024-01-10 07:29] LABS: ALK PHOS 112 U/L (45-117)
[2024-01-11 07:13] LABS: HEMATOCRIT 25.3 % (35.4-49); HEMOGLOBIN 8.4 GM/dL (11.7-16.9); MCH 29.1 pg (25.7-33.7); MCHC 33.1 g/dl (32.0-35.9); MEAN PLT VOLUME 7.4 fl (7.5-11.1); PLATELET COUNT 283 10^3/uL (134-434); RBC 2.87 M/mm3 (4.00-5.60); RDW 15.1 % (11.9-15.9); WHITE BLOOD COUNT 8.9 K/mm3 (4.0-10.0)
[2024-01-11 07:45] LABS: CALCIUM 8.6 mg/dL (8.5-10.1)
[2024-01-11 07:46] LABS: BLOOD UREA NITROGEN 42.4 mg/dL (7-18)
[2024-01-11 07:49] LABS: CREATININE 1.3 mg/dL (0.55-1.3)
[2024-01-11 14:37] VITALS: TEMP 97.9
[2024-01-11 18:09] VITALS: BP 139/47; PULSE 56; RESP 17
== END 2024-01-11 19:50 | DRG 291 ==
LOC: FER 17:22 → FM/S 21:15 → J4S 01-04 16:47
PROVIDERS: ATTEND Internal Medicine
DX: I13.0 Hypertensive heart and chronic kidney disease with heart failure and stage 1 through stage 4 chronic kidney disease, or unspecified chronic kidney disease (principal); I50.33 Acute on chronic diastolic (congestive) heart failure; J96.21 Acute and chronic respiratory failure with hypoxia; E87.1 Hypo-osmolality and hyponatremia; K21.9 Gastro-esophageal reflux disease without esophagitis; E78.5 Hyperlipidemia, unspecified; G20.A1 Parkinson's disease without dyskinesia, without mention of fluctuations; I25.10 Atherosclerotic heart disease of native coronary artery without angina pectoris; K44.9 Diaphragmatic hernia without obstruction or gangrene; M35.3 Polymyalgia rheumatica; I27.20 Pulmonary hypertension, unspecified; I73.89 Other specified peripheral vascular diseases; M54.50 Low back pain, unspecified; J45.909 Unspecified asthma, uncomplicated; D64.9 Anemia, unspecified; G47.33 Obstructive sleep apnea (adult) (pediatric); E11.42 Type 2 diabetes mellitus with diabetic polyneuropathy; H40.9 Unspecified glaucoma; F32.A Depression, unspecified; G25.81 Restless legs syndrome; E66.9 Obesity, unspecified; Z68.28 Body mass index [BMI] 28.0-28.9, adult; H91.92 Unspecified hearing loss, left ear; F03.90 Unspecified dementia, unspecified severity, without behavioral disturbance, psychotic disturbance, mood disturbance, and anxiety; N18.9 Chronic kidney disease, unspecified; Z88.1 Allergy status to other antibiotic agents; Z96.641 Presence of right artificial hip joint
CPT/HCPCS: 36415; 36600; 71045-TC-FY; 74230-TC-FY; 76775-TC; 80048; 80053; 80061; 81003; 81015; 82803; 82962; 83036; 83735; 83880; 84100; 84443; 84484; 85025; 85027; 85610; 92611-GN; 93005; 93010; 93306-TC; 94640; 94660; 97116-GP; 97162-GP; 99285-25; J1644

== ENCOUNTER 2024-09-05 18:36 | Inpatient (IN) | payer OTHER ==
[2024-09-05 19:48] LABS: BASO % 0.3 % (0-2.0); HEMATOCRIT 24.5 % (35.4-49); HEMOGLOBIN 8.2 GM/dL (11.7-16.9); LYMPH % 14.6 % (8-40); MCH 29.1 pg (25.7-33.7); MCHC 33.6 g/dl (32.0-35.9); MEAN CELL VOLUME 86.7 fl (80-96); MEAN PLT VOLUME 7.3 fl (7.5-11.1); MONO % 13.3 % (3.8-10.2); NEUT % 64.8 % (42.8-82.8); PLATELET COUNT 293 10^3/uL (134-434); RBC 2.82 M/mm3 (4.00-5.60); RDW 15.2 % (11.9-15.9); WHITE BLOOD COUNT 8.7 K/mm3 (4.0-10.0)
[2024-09-05 19:56] LABS: INR 1.08 (0.83-1.09); PROTHROMBIN TIME (PATIENT) 12.2 SEC (9.7-13.0)
[2024-09-05 19:58] LABS: ACTIVATED PTT 34.8 SECONDS (25.2-36.5)
[2024-09-05 20:04] LABS: CALCIUM 8.9 mg/dL (8.5-10.1)
[2024-09-05 20:05] LABS: ALBUMIN 3.6 g/dl (3.4-5.0); MAGNESIUM 2.7 mg/dL (1.8-2.4)
[2024-09-05 20:08] LABS: CREATININE 2.3 mg/dL (0.55-1.3)
[2024-09-05 20:09] LABS: BILIRUBIN,TOTAL 0.6 mg/dL (0.2-1); TOT PROT 7.6 g/dl (6.4-8.2)
[2024-09-05] MEDS ORDERED: FUROSEMIDE 40 MG/4 ML INJECTABLE VIAL ONE (21:44)
[2024-09-05] MEDS: FUROSEMIDE 40 MG/4 ML INJECTABLE VIAL IVPUSH ONE (21:50)
[2024-09-06] MEDS: CARBIDOPA/LEVODOPA 25/250 TABLET (FP) PO SCH ×2 (00:36→06:44)
[2024-09-06] MEDS: ALBUTEROL SO4 2.5/IPRATROPIUM 0.5 INH SOL 3 ML VIAL.NEB. NEB ONE (00:40)
[2024-09-06] MEDS: BUDESONIDE/FORMETEROL FUMARATE 160/4.5 mcg INHALER IH SCH (01:53)
[2024-09-06] MEDS ORDERED: FUROSEMIDE 40 MG/4 ML INJECTABLE VIAL IVPUSH SCH (03:00)
[2024-09-06] MEDS ORDERED: ACETAMINOPHEN 325 MG TABLET (FP) PO PRN (04:01)
[2024-09-06] MEDS: FUROSEMIDE 40 MG/4 ML INJECTABLE VIAL IVPUSH SCH (06:42)
[2024-09-06] MEDS: hydrALAZINE HCL 50 MG TABLET (FP) PO SCH (06:44)
[2024-09-06] MEDS: HEPARIN NA (PORCINE) 5,000 UNITS/ML 1ML VIAL SQ SCH ×2 (06:45→06:46)
[2024-09-06 07:36] LABS: HEMATOCRIT 25.1 % (35.4-49); HEMOGLOBIN 8.3 GM/dL (11.7-16.9); MCHC 33.2 g/dl (32.0-35.9); MEAN CELL VOLUME 87.4 fl (80-96); MEAN PLT VOLUME 7.5 fl (7.5-11.1); PLATELET COUNT 263 10^3/uL (134-434); RBC 2.87 M/mm3 (4.00-5.60); RDW 15.4 % (11.9-15.9); WHITE BLOOD COUNT 6.1 K/mm3 (4.0-10.0)
[2024-09-06 07:46] LABS: POTASSIUM 3.5 mmol/L (3.5-5.1)
[2024-09-06 07:59] LABS: ALBUMIN 3.5 g/dl (3.4-5.0); CALCIUM 8.8 mg/dL (8.5-10.1)
[2024-09-06 08:00] LABS: BLOOD UREA NITROGEN 38.1 mg/dL (7-18); MAGNESIUM 2.6 mg/dL (1.8-2.4)
[2024-09-06 08:03] LABS: TOT PROT 7.1 g/dl (6.4-8.2)
[2024-09-06 08:04] LABS: BILIRUBIN,TOTAL 0.7 mg/dL (0.2-1)
[2024-09-06] MEDS: ALLOPURINOL 100 MG TABLET (FP) PO SCH (10:06)
[2024-09-06] MEDS: ISOSORBIDE MONONITRATE 30 MG TAB.SR.24H (FP) PO SCH (10:06)
[2024-09-06] MEDS: amLODIPine BESYLATE 5 MG TABLET (FP) PO SCH (10:07)
[2024-09-06] MEDS: LORATADINE 10 MG TABLET PO SCH (10:07)
[2024-09-06] MEDS: FAMOTIDINE 20 MG TABLET PO SCH (10:07)
[2024-09-06] MEDS: TIMOLOL 0.5% OPHTHALMIC SOL 5 ML BOTTLE OD SCH (10:07)
[2024-09-06] MEDS: MINERAL OIL/PET HY-PHL TOPICAL OINTMENT 454 GM JAR TP SCH (22:10)
[2024-09-06] MEDS: SILVER SULFADIAZINE 1% TOP CREAM 50 GM JAR TP SCH (22:10)
[2024-09-06] MEDS: PRAMIPEXOLE DIHYDROCHLORIDE 1 MG TABLET PO SCH (22:10)
[2024-09-07 08:43] LABS: HEMATOCRIT 25.5 % (35.4-49); HEMOGLOBIN 8.3 GM/dL (11.7-16.9); MCH 28.5 pg (25.7-33.7); MCHC 32.5 g/dl (32.0-35.9); MEAN CELL VOLUME 87.7 fl (80-96); MEAN PLT VOLUME 7.7 fl (7.5-11.1); PLATELET COUNT 285 10^3/uL (134-434); RBC 2.91 M/mm3 (4.00-5.60); RDW 15.3 % (11.9-15.9); WHITE BLOOD COUNT 6.3 K/mm3 (4.0-10.0)
[2024-09-07 09:05] LABS: CHLORIDE 106 mmol/L (98-107); POTASSIUM 3.2 mmol/L (3.5-5.1); SODIUM 140 mmol/L (136-145)
[2024-09-07 09:12] LABS: ALBUMIN 3.3 g/dl (3.4-5.0); BLOOD UREA NITROGEN 34.6 mg/dL (7-18); CALCIUM 8.9 mg/dL (8.5-10.1); GLUCOSE,RANDOM 81 mg/dL (74-106)
[2024-09-07 09:13] LABS: ANION GAP 7 mmol/L (4-13); CO2 26 mmol/L (21-32)
[2024-09-07 09:14] LABS: SGPT/ALT < 6 U/L (13-61)
[2024-09-07 09:15] LABS: BILIRUBIN,TOTAL 0.9 mg/dL (0.2-1); CREATININE 2.2 mg/dL (0.55-1.3); SGOT/AST 20 U/L (15-37)
[2024-09-07 09:16] LABS: ALK PHOS 110 U/L (45-117)
[2024-09-07] MEDS: ASPIRIN COATED 81 MG TABLET.EC PO SCH (10:58)
[2024-09-07] MEDS: POTASSIUM CHLORIDE TABS 10 MEQ TABLET.ER (FP) PO ONE (18:27)
[2024-09-07 23:13] VITALS: BMI 27.4
[2024-09-08 08:25] LABS: HEMATOCRIT 25.7 % (35.4-49); HEMOGLOBIN 8.4 GM/dL (11.7-16.9); MCH 28.6 pg (25.7-33.7); MCHC 32.7 g/dl (32.0-35.9); MEAN CELL VOLUME 87.4 fl (80-96); MEAN PLT VOLUME 7.7 fl (7.5-11.1); PLATELET COUNT 296 10^3/uL (134-434); RBC 2.94 M/mm3 (4.00-5.60); RDW 15.1 % (11.9-15.9); WHITE BLOOD COUNT 7.4 K/mm3 (4.0-10.0)
[2024-09-08 10:01] LABS: ALBUMIN 3.5 g/dl (3.4-5.0)
[2024-09-08 10:04] LABS: BLOOD UREA NITROGEN 35.8 mg/dL (7-18); CALCIUM 9.2 mg/dL (8.5-10.1)
[2024-09-08 10:07] LABS: BILIRUBIN,TOTAL 0.6 mg/dL (0.2-1)
[2024-09-08 10:09] LABS: TOT PROT 7.1 g/dl (6.4-8.2)
[2024-09-08] MEDS: POTASSIUM CHLORIDE ORAL LIQUID 20 MEQ/15 ML PO SCH (15:05)
[2024-09-08] MEDS: ALBUTEROL SO4 2.5/IPRATROPIUM 0.5 INH SOL 3 ML VIAL.NEB. NEB PRN (16:05)
[2024-09-09] MEDS: ACETAMINOPHEN 1000 MG/100 ML BAG IVPB ONE (01:29)
[2024-09-09 13:49] VITALS: BP 124/54; PULSE 58; RESP 24; TEMP 97.3
[2024-09-09] MEDS: FUROSEMIDE 40 MG TABLET (FP) PO SCH (14:17)
== END 2024-09-09 16:08 | disposition home or self-care (01) | DRG 291 ==
LOC: JER 18:36 → JERBED 21:18 → OBSVTOIN 22:22 → J4W 09-06 01:44
PROVIDERS: ADMIT Internal Medicine; ATTEND Internal Medicine
DX: I13.0 Hypertensive heart and chronic kidney disease with heart failure and stage 1 through stage 4 chronic kidney disease, or unspecified chronic kidney disease (principal); I50.33 Acute on chronic diastolic (congestive) heart failure; N17.9 Acute kidney failure, unspecified; K21.9 Gastro-esophageal reflux disease without esophagitis; E78.5 Hyperlipidemia, unspecified; M35.3 Polymyalgia rheumatica; I25.10 Atherosclerotic heart disease of native coronary artery without angina pectoris; G20.A1 Parkinson's disease without dyskinesia, without mention of fluctuations; H40.9 Unspecified glaucoma; N18.9 Chronic kidney disease, unspecified; F03.90 Unspecified dementia, unspecified severity, without behavioral disturbance, psychotic disturbance, mood disturbance, and anxiety; D63.8 Anemia in other chronic diseases classified elsewhere; M10.9 Gout, unspecified; E87.6 Hypokalemia; F41.9 Anxiety disorder, unspecified; K44.9 Diaphragmatic hernia without obstruction or gangrene; G62.9 Polyneuropathy, unspecified; Z86.718 Personal history of other venous thrombosis and embolism
CPT/HCPCS: 36415; 71045-TC-FY; 71046-TC-FY; 80053; 80061; 82607; 82728; 82746; 83036; 83540; 83550; 83735; 83880; 84100; 84439; 84443; 84481; 84484; 85025; 85027; 85045; 85610; 85730; 86682; 93005; 93010; 93306-TC; 94640; 97116-GP; 97162-GP; 99285-25; G0378; J0131; J1644